=== PATIENT | male | born 1975 | race Two or more races ===

== ENCOUNTER 2024-10-13 20:19 | Inpatient (IN) | payer MEDICAID, SELFPAY ==
[2024-10-13 20:20] VITALS: BMI 29.9
[2024-10-13 20:39] VITALS: BP 154/79; PULSE 106; RESP 20; TEMP 39.4; O2SAT 95
[2024-10-13 20:51] VITALS: TEMP 39.4
[2024-10-13] MEDS: ACETAMINOPHEN 500 MG TABLET 1000 MG PO (20:51)
--- NOTE | 2024-10-13 20:56 | XR_ITS ---
Examination: CT abdomen with intravenous contrast CT pelvis with intravenous contrast 2-D coronal reconstructions 2-D sagittal reconstructions Date and time of exam:October 13, 2024, 10:33 PM INDICATIONS: Perianal pain and fever beginning 6 days ago. CTDI: vol (mGy) 8.02. DLP: (mGycm) 578. Technique: Multiple axial sections of the abdomen and pelvis have been obtained. 64 slice high-resolution scanner used. 3 mm axial sections have been obtained, post intravenous injection 60 cc Isovue 370. 2-D sagittal, coronal reconstructions obtained. Low dose protocols were performed. One or more of the following dose reduction techniques were used; automated exposure control, adjustment of the mA and/or KV according to patient size, use of iterative reconstruction technique. Findings: No focal liver or splenic lesions No gallstones. No pancreatic or adrenal mass. No renal or ureteral calculi, no hydronephrosis Aorta normal size Normal appendix No bowel obstruction Distended urinary bladder. Normal seminal vesicles No prostatomegaly Posterior perianal abscess, U shaped, transverse dimension 3.2 cm, AP dimension 3.4 cm Cephalocaudad dimension 1.4 cm Possible fistulous tract image 248 extending to the intergluteal fold on the right side image 246 IMPRESSION: Posterior right and left perianal abscess
[2024-10-13 21:14] VITALS: BP 105/75; PULSE 92; RESP 29; TEMP 37.7
--- NOTE | 2024-10-13 21:14 | PD.EDSKIN ---
ED Skin Abcess FB-RME/HPI General Chief complaint: General Adult/Misc Complain Stated complaint: RECTAL PAIN Time Seen by Provider: 10/13/24 20:46 Arrival date/time: 10/13/24 20:19 49M with no significant PMH presents to ED with several days of rectal pain and fevers/chills. Patient denies URI symptoms and blood in stool. Limitations: no limitations Related Data Home Medications ?Medication ?Instructions ?Recorded ?Confirmed No Known Home Medications 07/01/23 07/01/23 Allergies Allergy/AdvReac Type Severity Reaction Status Date / Time No Known Allergies Allergy Verified 07/02/23 07:35 Review of Systems Review of Systems Systems Reviewed: All systems reviewed, normal except as documented Constitutional Constitutional: Reports system reviewed and no additional complaints, except as documented, Denies fever(s) and Denies headache(s) ENT Ears, Nose, Mouth, and Throat: Denies disequilibrium and Denies headache(s) Cardiovascular Cardiovascular: Reports system reviewed and no additional complaints, except as documented, Denies chest pain and Denies dyspnea Respiratory Respiratory: Reports system reviewed and no additional complaints, except as documented, Denies cough and Denies dyspnea Gastrointestinal Gastrointestinal: Reports system reviewed and no additional complaints, except as documented, Denies abdominal pain, Denies nausea and Denies vomiting Integumentary/Breasts Skin/Breast: Reports as per HPI and Reports skin pain Neurologic Neurologic: Reports system reviewed and no additional complaints, except as documented, Denies confusion, Denies disequilibrium and Denies headache(s) Psychiatric Psychiatric: Denies confusion Past Medical History Past Medical History NEUROLOGIC: Negative Neurological Disorders or Seizures CARDIAC: Negative Cardiac Disorders or Congestive Heart Failure RESPIRATORY: Negative Chronic Obstructive Pulmonary Disease (COPD) GASTROINTESTINAL: Negative Gastrointestinal Disorders GENITOURINARY: Negative Genitourinary Disorders or Renal Disease MUSCULOSKELETAL: Negative Musculoskeletal Disorders ENDOCRINE: Negative Endocrine Disorders, Diabetes Mellitus Type 1 or Diabetes Mellitus Type 2 HEMATOLOGIC: Negative Blood Disorders OTHER HISTORY: Negative Autoimmune Disease, Falls, Blood Transfusions, Anesthesia Reactions, MRSA or Cancer Social History SMOKING STATUS: Never smoker SUBSTANCE USE: does not use ED Exam General Limitations: Present no limitations General appearance: Present alert and in no apparent distress Head Head exam: Present atraumatic Eye Eye exam: Present normal appearance, PERRL and EOMI ENT ENT exam: Present normal exam, normal oropharynx and mucous membranes moist Neck Neck exam: Present normal inspection, full ROM and trachea midline Chest Chest inspection: Present normal inspection and symmetric chest wall rise Respiratory Respiratory exam: Present normal lung sounds bilaterally Cardiovascular Cardiovascular exam: Present regular rate, normal rhythm and normal heart sounds Abdominal Exam Abdominal exam: Present soft and normal bowel sounds Rectal Exam Rectal exam: Present hemorrhoids and tenderness Extremities Exam Extremities exam: Present normal inspection and full ROM Back Exam Back exam: Present normal inspection and full ROM Neurological Exam Neurological exam: Present alert, oriented X3 and CN II-XII intact Psychiatric Psychiatric exam: Present normal affect and normal mood Skin Skin exam: Present warm, dry, intact and normal color Course Quality Measures none Orders Category Date Time Status Bedside COVID-19 Antigen Test NOW Care 10/13/24 20:47 Active Bedside Influenza A&B Antigen Test NOW Care 10/13/24 20:47 Completed COVID-19 Screening Questionnaire NOW Care 10/13/24 23:[address] Screening NOW Care 10/13/24 20:56 Active Decision to Admit X1 Care 10/13/24 23:18 Active Insert IV NOW Care 10/13/24 20:56 Active NPO NOW Care 10/13/24 23:19 Active Consult to General Surgery Stat Cons 10/13/24 23:18 Ordered Diet NPO (NOW) Diet 10/13/24 23:[address] abdomen pelvis w con Stat Exams 10/13/24 20:56 Completed XR chest 1V portable Stat Exams 10/13/24 21:43 Completed A1C [Glycohemoglobin w (eAG)] Stat Lab 10/13/24 21:16 Completed Blood Culture (Lab) Stat Lab 10/13/24 21:16 Received CBC Stat Lab 10/13/24 21:16 Completed CMP [Comprehensive Metabolic Panel] Stat Lab 10/13/24 21:16 Completed CRP [C-Reactive Protein] Stat Lab 10/13/24 21:16 Completed Drug Screen,Urine Stat Lab 10/13/24 21:36 Completed ESR [Sed Rate (ESR)] Stat Lab 10/13/24 21:16 Completed Lactate (Lactic Acid) Stat Lab 10/13/24 21:16 Completed Procalcitonin Stat Lab 10/13/24 21:16 Completed Acetaminophen Tab [Tylenol ES Tab] Med 10/13/24 20:47 Discontinued 1,000 mg PO X1 ONE Ketorolac Inj [Toradol Inj] Med 10/13/24 20:56 Discontinued 30 mg IVP X1 ONE Piper/Tazo 3.375 gm Premix [Zosyn] Med 10/13/24 23:18 Discontinued 3.375 gm in 50 ml IV X1 Sodium Chloride 0.9% 1000 ml [Ns] 1,000 ml Med 10/13/24 20:56 Discontinued IV 999 mls/hr cefTRIAXone/D5w 1gm IV premix [Rocephin/D5w 1gm IV Med 10/13/24 20:58 Discontinued premix] 1 gm in 50 ml IV X1 Vital Signs Vital signs: Vital Signs Temperature 102.9 F H 10/13/24 20:39 Pulse Rate 106 H 10/13/24 20:39 Respiratory Rate 20 10/13/24 20:39 Blood Pressure 154/79 H 10/13/24 20:39 Pulse Oximetry (%) 95 10/13/24 20:39 Oxygen Delivery Method Room Air 10/13/24 20:39 O2 at 95% on RA and WNLs Skin / Abscess / Foreign Body MDM Narrative MDM Narrative:: 49M with no significant PMH presents to ED with several days of rectal pain and fevers/chills. Patient denies URI symptoms and blood in stool. 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 However, there skin is very tender around the rectum. Patient is febrile, but is alert. Sepsis alert called. CT reveals several perianal abscesses along with possible fistula. Moderate leukocytosis. Elevated CRP/ESR. Normal procal/lactate. A1C in pre-DM range. Tox screen neg. Upon reassessment, patient felt better after IVF and pain meds. Spoke to Dr. Grimaldo, gen surg, who will consult. Spoke to IM resident reporting to Dr. Jordan, who will admit patient. Patient data External records reviewed:: [facility] previous records Clinical information provided by:: patient Social determinants that could affect healthcare access:: none Patient has the following chronic illnesses:: none How is presenting disease/condition affected by chronic disease/condition?: no chronic disease Evaluation data The following diagnostics were reviewed and interpreted by me:: lab results and radiology exam(s) Lab and/or radiology exams considered but not ordered:: ordered Interpretation Summary: above Medications / Prescriptions Medications or Prescriptions considered but not ordered:: ordered Medication administrations:: Medication Administration History Acetaminophen (Acetaminophen 325 Mg Tablet) 650 mg PO Q6H PRN PRN Reason: Fever >100.4 or pain 1-3 Stop: 11/12/24 23:46 Hydrocodone Bitart/Acetaminophen (Hydrocodone/Apap 5/325 Tablet) 1 tab PO Q4HR PRN PRN Reason: PAIN SCALE 4-10(Mod-Sev Stop: 10/18/24 23:46 Enoxaparin Sodium (Enoxaparin Sod Inj 40 Mg/0.4 Ml Syringe) 40 mg SC QDAY CYN Stop: 10/28/24 08:59 Ceftriaxone Sodium 2 gm/ (Sodium Chloride) 50 mls @ 100 mls/hr IV QDAY [facility] Stop: 10/21/24 08:59 Metronidazole (Flagyl 500 Mg Iv) 500 mg in 100 mls @ 200 mls/hr IV Q8HR CYN Stop: 10/20/24 23:56 Last Admin: 10/14/24 00:41 Dose: 200 mls/hr Documented By: CHELITA Lactated Ringer's (Lactated Ringers) 1,000 mls @ 80 mls/hr IV .[id number] CYN Stop: 10/14/24 12:28 Last Admin: 10/14/24 00:33 Dose: 80 mls/hr Documented By: CHELITA Ketorolac Tromethamine (Ketorolac Inj 30 Mg/Ml Vial) 30 mg IVP Q6HR PRN PRN Reason: PAIN SCALE 6-10(Mod-Sev Stop: 10/19/24 00:44 Ondansetron HCl (Ondansetron Inj 2 Mg/Ml Inj 2 Ml) 4 mg IVP Q6H PRN; Protocol PRN Reason: NAUSEA OR VOMITING Stop: 11/12/24 23:46 Discontinued Medications Acetaminophen (Acetaminophen 500 Mg Tablet) 1,000 mg PO X1 ONE Stop: 10/13/24 20:48 Last Admin: 10/13/24 20:51 Dose: 1,000 mg Documented By: CLIFF Acetaminophen (Acetaminophen 325 Mg Tablet) 650 mg PO Q6H PRN PRN Reason: Fever >100.4 or pain Stop: 11/12/24 23:46 Sodium Chloride (Ns) 1,000 mls @ 999 mls/hr IV .Q1H1M ONE Stop: 10/13/24 21:56 Last Infusion: 10/13/24 22:55 Dose: Infused Documented By: Admin: 10/13/24 21:33 Dose: 999 mls/hr Documented By: CHELITA Ceftriaxone Sodium/Dextrose (Rocephin/D5w 1gm Iv Premix) 1 gm in 50 mls @ 100 mls/hr IV X1 ONE Stop: 10/13/24 21:27 Last Infusion: 10/13/24 22:06 Dose: Infused Documented By: Admin: 10/13/24 21:35 Dose: 100 mls/hr Documented By: CHELITA Piperacillin/Tazobactam/Dextrose (Zosyn) 3.375 gm in 50 mls @ 100 mls/hr IV X1 ONE Stop: 10/13/24 23:47 Last Infusion: 10/14/24 00:52 Dose: Infused Documented By: Admin: 10/13/24 23:49 Dose: 100 mls/hr Documented By: CHELITA Ketorolac Tromethamine (Ketorolac Inj 30 Mg/Ml Vial) 30 mg IVP X1 ONE Stop: 10/13/24 20:57 Last Admin: 10/13/24 21:33 Dose: 30 mg Documented By: CHELITA Ketorolac Tromethamine (Ketorolac Inj 30 Mg/Ml Vial) 30 mg IVP Q6HR PRN PRN Reason: PAIN Stop: 10/19/24 00:44 Ketorolac Tromethamine (Ketorolac Inj 30 Mg/Ml Vial) 30 mg IVP Q6HR PRN PRN Reason: PAIN SCALE 4-10(Mod-Sev Stop: 10/19/24 00:44 above Consultations Consultation(s) initiated? (list below): Yes Diagnosis Skin/Abscess Differential Diagnosis: abscess of skin or subcutaneous tissue, viral exanthem, dermatophytosis, urticaria, herpes zoster, allergic reaction to drug, cellulitis, eczema, insect bites, impetigo, contact dermatitis and other (perianal abscess) Most likely diagnosis given after review of the tests above:: perianal abscess Admission Indicated Admission indicated?: indicated Admission Request Was there a request for admission?: Yes Admission Attestation Admission request attestation: Discussed case with [Dr. Jordan] from Hospitalist service regarding admission. Discussed patients ED course, exam findings, labs, and radiology results. The Hospitalist [agrees] to accept the patient for admission. Disposition Plan Disposition Plan: Admit Discharge Plan Plan Patient Disposition: Admit Acute Care w/in Hospital Problem List Clinical Impression: Abscess, perianal
[2024-10-13 21:27] LABS: Lactate (Lactic Acid) 0.9 mMol/L (0.4-2.0)
[2024-10-13 21:33] VITALS: TEMP 37.8
[2024-10-13] MEDS: KETOROLAC INJ 30 MG/ML VIAL IVP (21:33)
[2024-10-13] MEDS: SODIUM CHLORIDE 0.9% 1000 ML 1,000 ML 999 ML IV (21:33)
[2024-10-13] MEDS: cefTRIAXone/D5w 1gm IV premix 1 GM/50 ML BAG IV (21:35)
[2024-10-13 21:40] VITALS: BP 105/75; PULSE 89; RESP 22; TEMP 37.7; O2SAT 94
--- NOTE | 2024-10-13 21:43 | XR_ITS ---
Examination: AP chest single view TECHNIQUE: AP portable upright chest single view Date and time: October 13, 2024 2140 hours INDICATIONS: Sepsis alert today. Findings: Normal heart size Minor atelectasis left base No lobar pneumonia or pulmonary edema IMPRESSION: No pneumonia identified.
[2024-10-13 21:44] LABS: Basophils # (Auto) 0.1 Thou/mm3 (0.0-0.2); Basophils % (Auto) 0 % (0-2.5); Eosinophils # (Auto) 0.0 Thou/mm3 (0.0-0.5); Eosinophils % (Auto) 0 % (0-10); Hematocrit 41.6 % (41.0-53.0); Hemoglobin 15.1 g/dL (13.5-16.0); Immature Granulocytes Auto 0.07 Thou/mm3 (0.00-0.00); Lymphocytes # (Auto) 1.1 Thou/mm3 (1.0-4.8); Lymphocytes % (Auto) 8 % (10-50); Mean Corpuscular HGB Conc 36.3 g/dl (31.0-37.0); Mean Corpuscular Hemoglobin 32.8 pg (25.0-35.0); Mean Corpuscular Volume 90 fL (80-100); Monocytes # (Auto) 1.2 Thou/mm3 (0.0-0.8); Monocytes % (Auto) 9 % (0-12); Neutrophils # (Auto) 11.4 Thou/mm3 (1.8-7.7); Neutrophils % (Auto) 83 % (37-80); Nucleated Red Blood Cell # 0.00 Thou/mm3 (0.00-0.00); Nucleated Red Blood Cell % 0 /100 WBC (0); Platelet Count 207 Thou/mm3 (140-440); RDW Standard Deviation 38.8 fL (35.1-43.9); Red Blood Count 4.60 Miln/mm3 (4.50-5.90); White Blood Count 13.8 Thou/mm3 (3.8-10.6)
[2024-10-13 21:51] VITALS: TEMP 37.7
[2024-10-13 22:09] LABS: Sed Rate (ESR) 73 mm/hr (0-20)
[2024-10-13 22:14] LABS: Alanine Aminotransferase 46 U/L (10-49); Albumin, Serum 4.6 gm/dL (3.5-5.0); Albumin/Globulin Ratio 1.3 (1.2-2.2); Alkaline Phosphatase 106 U/L (46-116); Anion Gap 11 (7-16); Aspartate Amino Transferase 17 U/L (0-34); BUN/Creatinine Ratio 10 Ratio (12-20); Bilirubin,Total 0.5 mg/dL (0.3-1.2); Blood Urea Nitrogen 8 mg/dL (9-23); Calcium 9.1 mg/dL (8.3-10.6); Calcium (Corrected) 9.1 mg/dL (8.5-10.1); Carbon Dioxide 23.2 mMol/L (20.0-31.0); Chloride 103 mMol/L (98-107); Creatinine (Component) 0.8 mg/dL (0.6-1.3); Estimated Creatinine Clearance 108.7 mL/min (>60); Globulin 3.5 gm/dL (2.3-3.5); Glucose 137 mg/dL (74-106); Osmolality,Calculated 274 (275-295); Potassium 3.4 mMol/L (3.4-5.1); Procalcitonin 0.14 ng/ml (0.0-0.49); Sodium 137 mMol/L (136-145); Total Protein 8.1 gm/dL (5.7-8.2); eGFR > 60 See Note
[2024-10-13 22:26] LABS: Amphetamine/Methamp Scrn,U Negative (Negative); Barbiturate Screen,Urine Negative (Negative); Benzodiazepines Screen,Urine Negative (Negative); Benzoylecgonine Screen, Ur Negative (Negative); Fentanyl Screen,Urine Negative (Negative); Opiate Screen,Urine Negative (Negative); THC Screen,Urine Negative (Negative)
[2024-10-13 23:47] LABS: C-Reactive Protein 10.0 mg/dL (0.0-0.9); Glucose Estimated Average 131 mg/dL (80-131); Hemoglobin A1C 6.2 % Hgb (4.8-6.0)
[2024-10-13] MEDS: PIPER/TAZO 3.375 GM PREMIX 3.375 GM/50 ML BAG IV (23:49)
--- NOTE | 2024-10-13 23:50 | PD.RESHP ---
Documentation for date of: 10/13/24 [facility] History of Present Illness Chief complaint: Rectal pain History of present illness: 49 y/o M without PMHx presents to ED with chief complaint of rectal pain x 5 days and fevers and chills x 2 days. Patient was in his usual state health about 5 days ago when he began developing rectal pain, worsened with bowel movements. Patient tried home remedies including Epsom salt baths, without relief. Patient had to take several days off work due to increasing rectal pain. Patient also noticed fevers and chills starting 2 days ago. Patient denied shortness of breath, chest pain, nausea, vomiting, abdominal pain. ED COURSE: Labs significant for: WBC 13.8, ESR 73, CRP 10, hemoglobin A1c 6.2%, Pro-Bobo 0.14, U tox negative. Imaging significant for: Chest x-ray unremarkable. CT A/P showed posterior perianal abscess, possible fistula. Patient received 1 L bolus normal saline, 1 g Rocephin, Toradol 30 mg in the ED. SIRS positive, leukocytosis, tachycardia, fever 102.9. PMH: None PSH: None SH: Denies tobacco or illicit drug use. Reports occasional alcohol use, 1-2 drinks every couple of days. Allergies:?NKDA Medications: None Review of Systems Review of Systems Systems Reviewed: All systems reviewed, normal except as documented Past Medical History Past Medical History Comments PMH COMMENT: PMH: None PSH: None SH: Denies tobacco or illicit drug use. Reports occasional alcohol use, 1-2 drinks every couple of days. Allergies:?NKDA Medications: None Exam Vital Signs Temp Pulse Resp BP Pulse Ox O2 Del Method 100 F 89 22 H 105/75 94 L Room Air 10/13/24 21:51 10/13/24 21:40 10/13/24 21:40 10/13/24 21:40 10/13/24 21:40 10/13/24 21:40 Narrative Exam PE: Gen: Well-developed and well-nourished. HEENT: NCAT, PERRLA, EOMI, MMM, anicteric conjunctivae. CVS: normal S1 and S2. RRR. No M/R/G. Resp: CTA B/L. No rhonchi, rales, crackles or wheezing. Abd: soft, non-tender, non-distended. BS+ in all 4 quadrants. Rectal: Exquisitely tender to exam. Nonerythematous, no obvious masses. MSK: Good ROM in BUE & BLE. No edema or rash. Neuro: CN II-XII grossly intact. Strength 5/5 in BUE & BLE. Alert and oriented x3. Psych: appropriate mood and affect. Results: Labs 10/13/24 21:16 10/13/24 21:16 Labs: Short CBC 10/13/24 Range/Units 21:16 WBC 13.8 H (3.8-10.6) Thou/mm3 Hgb 15.1 (13.5-16.0) g/dL Hct 41.6 (41.0-53.0) % Plt Count 207 (140-440) Thou/mm3 BMP 10/13/24 21:16 Sodium 137 Potassium 3.4 Chloride 103 Carbon Dioxide 23.2 BUN 8 L Creatinine 0.8 Glucose 137 H Calcium 9.1 Liver Function 10/13/24 Range/Units 21:16 Total Bilirubin 0.5 (0.3-1.2) mg/dL AST 17 (0-34) U/L ALT 46 (10-49) U/L Alkaline Phosphatase 106 (46-116) U/L Albumin 4.6 (3.5-5.0) gm/dL Quality Measures Quality Measures VTE prophylaxis Medications Home Medications and Allergies Home Medications ?Medication ?Instructions ?Recorded ?Confirmed ?Type No Known Home Medications 07/01/23 07/01/23 History Allergies Allergy/AdvReac Type Severity Reaction Status Date / Time No Known Allergies Allergy Verified 07/02/23 07:35 Visit Medications Acetaminophen (Acetaminophen 325 Mg Tablet) 650 mg PO Q6H PRN PRN Reason: Fever >100.4 or pain Stop: 11/12/24 23:46 Hydrocodone Bitart/Acetaminophen (Hydrocodone/Apap 5/325 Tablet) 1 tab PO Q4HR PRN PRN Reason: PAIN SCALE 4-10(Mod-Sev Stop: 10/18/24 23:46 Enoxaparin Sodium (Enoxaparin Sod Inj 40 Mg/0.4 Ml Syringe) 40 mg SC QDAY CYN Stop: 10/28/24 08:59 Ceftriaxone Sodium 2 gm/ (Sodium Chloride) 50 mls @ 100 mls/hr IV QDAY CYN Stop: 10/20/24 23:56 Metronidazole (Flagyl 500 Mg Iv) 500 mg in 100 mls @ 200 mls/hr IV Q8HR [facility] Stop: 10/20/24 23:56 Lactated Ringer's (Lactated Ringers) 1,000 mls @ 80 mls/hr IV .[id number] [facility] Stop: 10/14/24 12:28 Ondansetron HCl (Ondansetron Inj 2 Mg/Ml Inj 2 Ml) 4 mg IVP Q6H PRN; Protocol PRN Reason: NAUSEA OR VOMITING Stop: 11/12/24 23:46 Discontinued Medications Acetaminophen (Acetaminophen 500 Mg Tablet) 1,000 mg PO X1 ONE Stop: 10/13/24 20:48 Last Admin: 10/13/24 20:51 Dose: 1,000 mg Sodium Chloride (Ns) 1,000 mls @ 999 mls/hr IV .Q1H1M ONE Stop: 10/13/24 21:56 Last Infusion: 10/13/24 22:55 Dose: Infused Ceftriaxone Sodium/Dextrose (Rocephin/D5w 1gm Iv Premix) 1 gm in 50 mls @ 100 mls/hr IV X1 ONE Stop: 10/13/24 21:27 Last Infusion: 10/13/24 22:06 Dose: Infused Piperacillin/Tazobactam/Dextrose (Zosyn) 3.375 gm in 50 mls @ 100 mls/hr IV X1 ONE Stop: 10/13/24 23:47 Last Admin: 10/13/24 23:49 Dose: 100 mls/hr Ketorolac Tromethamine (Ketorolac Inj 30 Mg/Ml Vial) 30 mg IVP X1 ONE Stop: 10/13/24 20:57 Last Admin: 10/13/24 21:33 Dose: 30 mg Assessment & Plan Plan 49 y/o M without PMHx presents to ED with chief complaint of rectal pain x 5 days and fevers and chills x 2 days admitted for perianal abscess. #Perianal abscess, nonseptic Patient presented with chief complaint of rectal pain x 5 days, growing worse despite treatment with Epsom salt baths. Patient also noted fever and chills x 2 days. SIRS positive with tachycardia, leukocytosis, fever 102.9. Sepsis negative, sofa score 0. CT A/P showed perianal abscess, possible fistula. Dr. Erazo on board, plan for I&D tomorrow. - Ceftriaxone 2 g IV daily (started 10/14) - Patient to follow-up Flagyl 500 mg IV 3 times daily (started 10/14) - N.p.o. after midnight - Plan for I&D tomorrow - Surgery consulted, appreciate recommendations - Catarina 5 p.o. every 4 hours as needed for pain - Blood cultures pending #Prediabetes Patient has no history of diabetes. Hemoglobin A1c 6.2%, prediabetic range. - Education regarding lifestyle and diet changes. DVT prophylaxis: Lovenox GI prophylaxis: None Diet: N.p.o. pending procedure Lines: Peripheral IV Code status: Full code Plan of care discussed with attending Dr. Jordan. Sammy Cardona MD PGY-2 Attending Provider Attestation/Addendum I attest that I was physically present for the evaluation, physical examination, lab and imaging review of the patient with the residents. I discussed the case with the residents and agree with the findings and plans of care as documented above. After examination of the patient and review of the clinical data I feel that this patient needs admission to the hospital for further treatment/evaluation. Patient is a 49 years old male without known past medical history who presented to the ED with complaint of rectal pain for 5 days. He is also having chills and fever for the last couple days. His rectal pain is worsened with bowel movement. He denies any abdominal pain, nausea or vomiting. In the ED, initial vitals showed temperature of 102.9 ?F, pulse of 106, blood pressure 154/79. Lab results were significant for WBC of 13.8, ESR 73, CRP 10. Chest x-ray was obtained, which did not show any active disease. Abdomen/pelvis CT was done, which showed posterior perianal abscess, possible fistulous tract. We will admit the patient for management of perianal abscess. We will start him on IV Rocephin 2 g daily along with Flagyl 500 3 times daily. General surgery has been contacted by ED, patient is planned for I&D tomorrow. Cultures have been obtained. Analgesic regimen on board. Noted to have A1c of 6.2, blood glucose, and place stable, we will monitor closely. Monika Jordan MD
[2024-10-14] VITALS (63 sets, daily range): BP systolic 99–164; BP diastolic 60–95; PULSE 71–103; RESP 16–20; TEMP 36.4–37.7; O2SAT 90–97; BMI 29.9
[2024-10-14] MEDS: RINGERS LACTATED 1000 ML 1,000 ML 80 ML IV (00:33)
[2024-10-14] MEDS: metroNIDAZOLE/NS 500 MG IVPB 500 MG/100 ML BAG 200 MG IV ×4 (00:41→21:16)
[2024-10-14] MEDS: KETOROLAC INJ 30 MG/ML VIAL IVP ×3 (01:54→15:24)
[2024-10-14] MEDS: MORPHINE SULF INJ 10 MG/ML VIAL IVP (04:54)
[2024-10-14 05:01] LABS: Basophils # (Auto) 0.1 Thou/mm3 (0.0-0.2); Basophils % (Auto) 0 % (0-2.5); Eosinophils # (Auto) 0.0 Thou/mm3 (0.0-0.5); Eosinophils % (Auto) 0 % (0-10); Hematocrit 40.9 % (41.0-53.0); Hemoglobin 14.2 g/dL (13.5-16.0); Immature Granulocytes Auto 0.06 Thou/mm3 (0.00-0.00); Lymphocytes # (Auto) 1.1 Thou/mm3 (1.0-4.8); Lymphocytes % (Auto) 8 % (10-50); Mean Corpuscular HGB Conc 34.7 g/dl (31.0-37.0); Mean Corpuscular Hemoglobin 32.1 pg (25.0-35.0); Mean Corpuscular Volume 92 fL (80-100); Monocytes # (Auto) 1.3 Thou/mm3 (0.0-0.8); Monocytes % (Auto) 9 % (0-12); Neutrophils # (Auto) 12.1 Thou/mm3 (1.8-7.7); Neutrophils % (Auto) 83 % (37-80); Nucleated Red Blood Cell # 0.00 Thou/mm3 (0.00-0.00); Nucleated Red Blood Cell % 0 /100 WBC (0); Platelet Count 186 Thou/mm3 (140-440); RDW Standard Deviation 40.7 fL (35.1-43.9); Red Blood Count 4.43 Miln/mm3 (4.50-5.90); White Blood Count 14.6 Thou/mm3 (3.8-10.6)
[2024-10-14 05:18] LABS: INR 1.1 (0.9-1.3); Partial Thromboplastin Time 29.0 Seconds (22.0-36.0); Prothrombin Time 11.8 Seconds (9.0-12.2)
[2024-10-14 06:12] LABS: Alanine Aminotransferase 37 U/L (10-49); Albumin, Serum 3.9 gm/dL (3.5-5.0); Albumin/Globulin Ratio 1.3 (1.2-2.2); Alkaline Phosphatase 88 U/L (46-116); Anion Gap 10 (7-16); Aspartate Amino Transferase 15 U/L (0-34); BUN/Creatinine Ratio 11 Ratio (12-20); Bilirubin,Total 0.5 mg/dL (0.3-1.2); Blood Urea Nitrogen 9 mg/dL (9-23); Calcium 8.4 mg/dL (8.3-10.6); Calcium (Corrected) 8.5 mg/dL (8.5-10.1); Carbon Dioxide 25.6 mMol/L (20.0-31.0); Cardiac Risk Estimate 4.8 RATIO (4.0-6.7); Chloride 105 mMol/L (98-107); Cholesterol 155 mg/dL (132-200); Creatinine (Component) 0.8 mg/dL (0.6-1.3); Estimated Creatinine Clearance 108.7 mL/min (>60); Globulin 2.9 gm/dL (2.3-3.5); Glucose 125 mg/dL (74-106); HDL Cholesterol 32 mg/dL (40-60); LDL Cholesterol,Calculated 104 mg/dL (0-130); Magnesium 1.9 mg/dL (1.6-2.6); Osmolality,Calculated 280 (275-295); Phosphorous 2.7 mg/dL (2.4-5.1); Potassium 3.6 mMol/L (3.4-5.1); Sodium 141 mMol/L (136-145); Total Protein 6.8 gm/dL (5.7-8.2); Triglycerides 95 mg/dL (30-150); eGFR > 60 See Note
--- NOTE | 2024-10-14 08:10 | PD.SURCONS ---
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 Patient reports symptoms began suddenly with no clear inciting factor, he has had similar episodes but they were less severe and did not require any intervention. He is also having malaise and fever/chills the last couple days, workup consistent with small horseshoe perirectal abscess up to 3.4 cm. Patient has not noted any drainage from the area, he has had some constipation which was not helped by fiber but he underwent colonoscopy last year which was normal aside from internal hemorrhoids PMH: None PSH: None Meds: None Allergies: NKDA Social history: Non-smoker Family history: No known malignancy Review of Systems Review of Systems ROS Unobtainable: All systems reviewed & no additional complaints except as documented Constitutional Constitutional: Denies headache(s) ENT Ears, Nose, Mouth, and Throat: Denies disequilibrium and Denies headache(s) Neurologic Neurologic: Reports system reviewed and no additional complaints, except as documented, Denies confusion, Denies disequilibrium and Denies headache(s) Psychiatric Psychiatric: Denies confusion Meds Home Medications and Allergies Home Medications ?Medication ?Instructions ?Recorded ?Confirmed ?Type No Known Home Medications 07/01/23 07/01/23 History Allergies Allergy/AdvReac Type Severity Reaction Status Date / Time No Known Allergies Allergy Verified 07/02/23 07:35 Exam Vital Signs Temp Pulse Resp BP Pulse Ox O2 Del Method 99.4 F 73 19 164/95 H 94 L Room Air 10/14/24 05:00 10/14/24 05:00 10/14/24 05:00 10/14/24 07:00 10/14/24 07:00 10/14/24 05:00 Constitutional Constitutional: no acute distress Routine Respiratory Exam Respiratory: Present no resp distress Routine Rectal Exam Comments: Significant perianal tenderness, however there is no obvious fluctuance or erythema on exam Results Results: Laboratory Laboratory results: results reviewed Results: Imaging CT scan - abdomen: report reviewed and image reviewed Assessment & Plan Plan 49M presenting with a 3.4 cm perirectal abscess. As the abscess is not obvious on exam, I reached out to our interventional radiologist to determine if it might be amenable to image guided drainage; if not I will pursue exam under anesthesia with plan to surgically drain this afternoon N.p.o. for now Continue antibiotics IR versus surgical drainage today
[2024-10-14] MEDS: HYDROcodone/APAP 5/325 TABLET 1 TAB PO (08:39)
[2024-10-14] MEDS: ENOXAPARIN SOD INJ 40 MG/0.4 ML SYRINGE SC (08:39)
[2024-10-14] MEDS: ONDANSETRON INJ 2 MG/ML INJ 2 ML 4 MG IVP (08:40)
--- NOTE | 2024-10-14 17:57 | PD.SUROPNT ---
Date of Procedure 10/14/24 Pre Op Diagnosis Perirectal abscess Post Op Diagnosis Same Procedure Incision and drainage of perirectal abscess Findings Perirectal abscess containing copious pus Procedure Description After discussion of risks and benefits, patient was brought to the operating room, SCDs were placed and general anesthesia was induced. He was placed in lithotomy position with proper padding and was prepped and draped in usual sterile fashion. After timeout the area of most fluctuance was palpated to the right of the anus. I first aspirated the area with an 18-gauge needle and then made a curvilinear incision approximately 2 cm in length and approximately 1 cm from the anus. The wound was probed with a hemostat and there was a return of copious pus from which a culture was taken. The wound was probed for any loculations and approximately 30 cc of pus in total was expressed. Given the horseshoe nature of this abscess I did palpate the left side of the anus and aspirated but there was no return of pus, so ultimately did not seem that a left-sided incision would be beneficial. There was some oozing from the right perianal incision which was controlled with direct pressure, electrocautery and Surgicel. A Anaid drain was placed into the incision and secured to the skin and to itself using a 2-0 nylon. A local block was performed with 20 cc of half percent Marcaine. Patient was returned to supine position and extubated without complication. He was brought to PACU in stable condition Pathology / specimen Other (Perirectal abscess) Estimated Blood Loss 25 Surgeon Marleny Erazo MD Surgical Staff Operation Date: 10/14/24 14:45 Case Staff Anesthesiologist: Leonidas Ahumada
--- NOTE | 2024-10-14 18:27 | SUR.PHASEI ---
pt received to [facility]. vss. perineal dressing cdi with mesh under graves and gauze. breathing even and unlabored. report from or nurse and dr howard.
--- NOTE | 2024-10-14 18:50 | SUR.PHASEI ---
report called to juan on ms. vss. breathing even and unlabored. dressing cdi. denies pain and nausea. tolerated po fluids. dressing remains cdi with pen steffany drain in place. transported to room via [facility].
[2024-10-14] MEDS: cefTRIAXone 2 GM in SODIUM CHLORIDE 0.9% (Popper) 50 ML IV (20:20)
--- NOTE | 2024-10-14 21:07 | ESPR_ITS ---
<Statement entered by Dennis Gibson MD - 10/16/24 21:07> Patient was examined and case was reviewed with team including attending physician. Note reviewed, I agree with most of its contents and agree with the patient's care. Dennis Gibson MD PGY-2 Documentation for date of: 10/14/24 Subjective Subjective Interval history: Patient was seen in the ED this morning. No other complaints at this time. Patient is aware of and acknowledged the plan for surgery today. Exam Vital Signs Temp Pulse Resp BP Pulse Ox O2 Del Method O2 Flow Rate 98.0 F 72 19 99/67 91 L Nasal Cannula 2 10/14/24 20:00 10/14/24 20:00 10/14/24 20:00 10/14/24 20:00 10/14/24 20:00 10/14/24 20:00 10/14/24 20:00 Narrative Exam Physical Exam General: Awake and in no acute distress. Conversational and non-toxic appearing. HEENT: Normocephalic, atraumatic, mucous membranes moist. Heart: Regular rate and rhythm, normal S1 and S2, no murmurs. Lungs: Clear to auscultation with no wheezing or crackles. Abdomen: Soft, nondistended, nontender. No guarding or rebound tenderness. Neurologic: Alert and oriented x3, no gross neurological deficit, and patient able to move all 4 extremities. Extremities: No edema. Skin: No rash or ecchymoses. Rectal exam not performed. Objective Labs 10/15/24 04:21 10/15/24 04:21 Labs: Laboratory Results - last 24 hr 10/13/24 10/13/24 10/14/24 21:16 21:36 04:45 WBC 13.8 H 14.6 H RBC 4.60 4.43 L Hgb 15.1 14.2 Hct 41.6 40.9 L MCV 90 92 MCH 32.8 32.1 MCHC 36.3 34.7 RDW Std Deviation 38.8 40.7 Plt Count 207 186 Neut % (Auto) 83 H 83 H Lymph % (Auto) 8 L 8 L [place] % (Auto) 9 9 Eos % (Auto) 0 0 Baso % (Auto) 0 0 Neut # (Auto) 11.4 H 12.1 H Lymph # (Auto) 1.1 1.1 [place] # (Auto) 1.2 H 1.3 H Eos # (Auto) 0.0 0.0 Baso # (Auto) 0.1 0.1 Immature Gran # (Auto) 0.07 H 0.06 H Absolute Nucleated RBC 0.00 0.00 Immature Gran % 1 H 0 Nucleated RBC % 0 0 ESR 73 H PT 11.8 INR 1.1 APTT 29.0 Sodium 137 141 Potassium 3.4 3.6 Chloride 103 105 Carbon Dioxide 23.2 25.6 Anion Gap 11 10 BUN 8 L 9 Creatinine 0.8 0.8 Estim Creat Clear Calc 108.7 108.7 eGFR > 60 > 60 BUN/Creatinine Ratio 10 L 11 L Glucose [address] Glu mg/dL 131 Hemoglobin A1c 6.2 H Calculated Osmolality 274 L 280 Lactic Acid 0.9 Calcium 9.1 8.4 Corrected Calcium 9.1 8.5 Phosphorus 2.7 Magnesium 1.9 Total Bilirubin 0.5 0.5 AST 17 15 ALT 46 37 Alkaline Phosphatase 106 88 C-Reactive Prot, Quant 10.0 H Total Protein 8.1 6.8 Albumin 4.6 3.9 D Globulin 3.5 2.9 Albumin/Globulin Ratio 1.3 1.3 Triglycerides 95 Cholesterol 155 LDL Cholesterol, Calc 104 HDL Cholesterol 32 L Cholesterol/HDL Ratio 4.8 Procalcitonin 0.14 Urine Opiates Screen Negative Urine Fentanyl Screen Negative Ur Barbiturates Screen Negative U Amphetamin/Meth Scrn Negative U Benzodiazepines Scrn Negative U Cocaine Metab Screen Negative U Marijuana (THC) Screen Negative Quality Measures Quality Measures VTE prophylaxis Assessment & Plan Assessment Current Active Medications: Generic Name Dose Route Start Last Admin Trade Name Freq PRN Reason Stop Dose Admin Acetaminophen 650 mg 10/14/24 00:06 Acetaminophen 325 Mg Tablet PO 11/12/24 23:46 Q6H PRN Fever >100.4 or pain 1-3 Hydrocodone Bitart/Acetaminophen 1 tab 10/14/24 01:49 10/14/24 08:39 Hydrocodone/Apap 5/325 Tablet PO 10/18/24 23:46 1 tab Q4HR PRN Administration PAIN SCALE 7-10 (Severe Enoxaparin Sodium 40 mg 10/14/24 09:00 10/14/24 08:39 Enoxaparin Sod Inj 40 Mg/0.4 Ml Syringe SC 10/28/24 08:59 40 mg QDAY CYN Administration Ceftriaxone Sodium 2 gm/ 50 mls @ 100 mls/hr 10/14/24 21:00 10/14/24 20:20 Sodium Chloride IV 10/21/24 20:59 100 mls/hr HS CYN Administration Metronidazole 500 mg in 100 mls @ 200 mls/hr 10/13/24 23:57 10/14/24 15:25 Flagyl 500 Mg Iv IV 10/20/24 23:56 200 mls/hr Q8HR CYN Administration Ketorolac Tromethamine 30 mg 10/14/24 01:50 10/14/24 15:24 Ketorolac Inj 30 Mg/Ml Vial IVP 10/19/24 00:44 30 mg Q6HR PRN Administration PAIN SCALE 4-6 (Moderate Ondansetron HCl 4 mg 10/13/24 23:47 10/14/24 08:40 Ondansetron Inj 2 Mg/Ml Inj 2 Ml IVP 11/12/24 23:46 4 mg Q6H PRN Administration NAUSEA OR VOMITING Protocol Plan 49 year-old male presented to emergency department with a 5-day history of rectal pain and a 2-day history of fevers and chills, admitted for management of a perianal abscess. #Perianal abscess (nonseptic) #Intractable rectal pain SIRS positive with tachycardia, leukocytosis, fever 102.9. Sepsis negative, sofa score 0. CT abd/pelvis: posterior right and left perianal abscess, possible fistula. ESR 73, CRP 10.0 Plan: - Ceftriaxone 2 g IV daily (10/14-). - Flagyl 500 mg IV 3 times daily (10/14-). - Surgery consulted - appreciate recs. - Dr. Erazo will reach out to IR to determine if abscess can be amendable to image guided drainage since abscess is not obvious on exam. If IR is unable to, Dr. Erazo will surgically drain the abscess under anesthesia. - NPO for procedure. - [place] 5 p.o. every 4 hours as needed for pain. - Blood cultures pending. - Trend ESR and CRP. #Prediabetes No history of diabetes. Hemoglobin A1c 6.2. Plan: - Patient education about lifestyle modifications (diet, physical activity) - Outpatient follow-up with primary care. Health Maintenance: DVT prophylaxis: Lovenox GI prophylaxis: None Diet: N.p.o. pending procedure Lines: Peripheral IV Code status: Full code Case discussed with my senior resident Dr. Beck Gibson and my attending Dr. Zhong. Jamel Swanson, Attending Provider Attestation/Addendum I have examined the patient, reviewed labs and imaging findings, discussed the case with the resident(s), and reviewed entered orders. I agree with the plan of care as outlined in this note, with these additional summaries/recommendations: Patient seen at bedside. Patient admitted overnight for intractable rectal pain, fever/chills, and perianal abscess. CT scan of abdomen pelvis with contrast revealed posterior perianal abscess which is U-shaped with transverse dimension 3.2 cm in AP dimension 3.4 cm. Questionable fistulous track extending to the intergluteal fold. General surgery was consulted and patient will either go for IR or surgical drainage today. Continue IV antibiotics and follow-up culture results. N.p.o. for now. Patient was also informed he is a prediabetic and showed understanding. Continue pain management. Patient updated on the plan and in agreement. All questions answered to satisfaction. Please see residents note for additional details and management. Dr. Farheen MD
[2024-10-15] VITALS: BP 99/59; PULSE 71; RESP 16; TEMP 36.6; O2SAT 95
[2024-10-15 04:00] VITALS: BP 94/58; PULSE 62; RESP 19; TEMP 36.7; O2SAT 95
[2024-10-15] MEDS: metroNIDAZOLE/NS 500 MG IVPB 500 MG/100 ML BAG 200 MG IV (05:21)
[2024-10-15 06:09] LABS: Basophils # (Auto) 0.0 Thou/mm3 (0.0-0.2); Basophils % (Auto) 0 % (0-2.5); Eosinophils # (Auto) 0.0 Thou/mm3 (0.0-0.5); Eosinophils % (Auto) 0 % (0-10); Hematocrit 38.4 % (41.0-53.0); Hemoglobin 13.1 g/dL (13.5-16.0); Immature Granulocytes Auto 0.11 Thou/mm3 (0.00-0.00); Lymphocytes # (Auto) 1.0 Thou/mm3 (1.0-4.8); Lymphocytes % (Auto) 6 % (10-50); Mean Corpuscular HGB Conc 34.1 g/dl (31.0-37.0); Mean Corpuscular Hemoglobin 32.2 pg (25.0-35.0); Mean Corpuscular Volume 94 fL (80-100); Monocytes # (Auto) 0.8 Thou/mm3 (0.0-0.8); Monocytes % (Auto) 5 % (0-12); Neutrophils # (Auto) 14.8 Thou/mm3 (1.8-7.7); Neutrophils % (Auto) 89 % (37-80); Nucleated Red Blood Cell # 0.00 Thou/mm3 (0.00-0.00); Nucleated Red Blood Cell % 0 /100 WBC (0); Platelet Count 203 Thou/mm3 (140-440); RDW Standard Deviation 41.5 fL (35.1-43.9); Red Blood Count 4.07 Miln/mm3 (4.50-5.90); White Blood Count 16.7 Thou/mm3 (3.8-10.6)
[2024-10-15 06:37] LABS: Alanine Aminotransferase 26 U/L (10-49); Albumin, Serum 3.7 gm/dL (3.5-5.0); Albumin/Globulin Ratio 1.4 (1.2-2.2); Alkaline Phosphatase 90 U/L (46-116); Anion Gap 11 (7-16); Aspartate Amino Transferase 12 U/L (0-34); BUN/Creatinine Ratio 17 Ratio (12-20); Bilirubin,Total 0.3 mg/dL (0.3-1.2); Blood Urea Nitrogen 12 mg/dL (9-23); Calcium 8.2 mg/dL (8.3-10.6); Calcium (Corrected) 8.4 mg/dL (8.5-10.1); Carbon Dioxide 27.4 mMol/L (20.0-31.0); Chloride 101 mMol/L (98-107); Creatinine (Component) 0.7 mg/dL (0.6-1.3); Estimated Creatinine Clearance 124.2 mL/min (>60); Globulin 2.7 gm/dL (2.3-3.5); Glucose 152 mg/dL (74-106); Magnesium 2.1 mg/dL (1.6-2.6); Osmolality,Calculated 280 (275-295); Phosphorous 2.9 mg/dL (2.4-5.1); Potassium 3.6 mMol/L (3.4-5.1); Sodium 139 mMol/L (136-145); Total Protein 6.4 gm/dL (5.7-8.2); eGFR > 60 See Note
[2024-10-15 08:00] VITALS: BP 93/52; PULSE 66; RESP 17; TEMP 36.3; O2SAT 96
[2024-10-15] MEDS: ENOXAPARIN SOD INJ 40 MG/0.4 ML SYRINGE SC (08:16)
[2024-10-15] MEDS: HYDROcodone/APAP 5/325 TABLET 1 TAB PO ×2 (08:40→19:30)
--- NOTE | 2024-10-15 10:30 | PC.SS ---
1030-Pt is a 49 yo female who was admitted on 10/13 for rectal pain x 5 days and fevers and chills x 2 days admitted for perianal abscess. Per morning rounding meeting, pt july d/c tomorrow.
[2024-10-15] MEDS: DOXYCYCLINE INJ 100 MG in SODIUM CHLORIDE 0.9% (POP) 100 ML IV ×2 (11:08→21:14)
--- NOTE | 2024-10-15 11:48 | ESPR_ITS ---
<Statement entered by Roger Muñoz MD - 10/15/24 14:35> Senior Resident Attestation: I supervised/discussed management plan with wireless internet installer physician Dr. Krishnamurthy, and was involved in the care of this patient. I personally saw and examined the patient and discussed the assessment and plan with the entire medicine team, including my attending. I agree with the assessment and plan as documented. No acute overnight events reported. Patient was seen and examined at the bedside. He is postop day 1 reports mild pain at the surgery site, was given pain control. His metronidazole was discontinued he was started on doxycycline. His white cell count is uptrending. Blood culture preliminary grew GNR 1 out of 2, possible contamination. Will continue same management and possible discharge patient tomorrow. Patient's care was discussed with attending physician, Dr. Zhong. Roger Muñoz MD PGY-3. Documentation for date of: 10/15/24 Subjective Subjective Interval history: No overnight events. VS stable. Afebrile. Evaluated at bedside. Perianal abscess s/p I&D by Dr. Erazo with 30cc pus drainage. Pt refers 7/10 pain to I&D site. Multimodal pain control provided. WBC increased to 16.7 from 14.6, likely due to inflammation from surgery vs infection. Will continue to monitor for one more day with pain control, likely D/C tmr if Dr. Erazo ok with discharge and if leukocytosis downtrending. Pt taken off Lovenox, put on SCD to minimize bleed from incision site. Minimal bleeding noted on exam today, will continue to monitor. Exam Vital Signs Temp Pulse Resp BP Pulse Ox O2 Del Method O2 Flow Rate 97.3 F 66 17 93/52 L 96 Nasal Cannula 2 10/15/24 08:00 10/15/24 08:00 10/15/24 08:00 10/15/24 08:00 10/15/24 08:00 10/15/24 08:00 10/15/24 08:00 Narrative Exam General: Well appearing, well nourished, in no distress. Oriented x 3, normal mood and affect . Ambulating without difficulty. Skin: Good turgor, no rash, unusual bruising or prominent lesions Heart: No cardiomegaly or thrills; regular rate and rhythm, no murmur or gallop Lungs: Clear to auscultation and percussion. No rales, wheeze, or rhonchi Abdomen: Bowel sounds normal, no tenderness, organomegaly, masses, or hernia Back: Spine normal without deformity or tenderness, no CVA tenderness. Perianal abscess s/p I&D. Slight bleed from incision site. Covered with dress. Extremities: No amputations or deformities, cyanosis, edema or varicosities, peripheral pulses intact Musculoskeletal: Normal gait and station. No misalignment, asymmetry, crepitation, defects, tenderness, masses, effusions, decreased range of motion, instability, atrophy or abnormal strength or tone in the head, neck, spine, ribs, pelvis or extremities. Objective Labs 10/15/24 04:21 10/15/24 04:21 Labs: Laboratory Results - last 24 hr 10/15/24 04:21 WBC 16.7 H RBC 4.07 L Hgb 13.1 L Hct 38.4 L MCV 94 MCH 32.2 MCHC 34.1 RDW Std Deviation 41.5 Plt Count 203 Neut % (Auto) 89 H Lymph % (Auto) 6 L [place] % (Auto) 5 Eos % (Auto) 0 Baso % (Auto) 0 Neut # (Auto) 14.8 H Lymph # (Auto) 1.0 [place] # (Auto) 0.8 Eos # (Auto) 0.0 Baso # (Auto) 0.0 Immature Gran # (Auto) 0.11 H Absolute Nucleated RBC 0.00 Immature Gran % 1 H Nucleated RBC % 0 Sodium 139 Potassium 3.6 Chloride 101 Carbon Dioxide 27.4 Anion Gap 11 BUN 12 Creatinine 0.7 Estim Creat Clear Calc 124.2 eGFR > 60 BUN/Creatinine Ratio 17 Glucose 152 H Calculated Osmolality 280 Calcium 8.2 L Corrected Calcium 8.4 L Phosphorus 2.9 Magnesium 2.1 Total Bilirubin 0.3 AST 12 ALT 26 Alkaline Phosphatase 90 Total Protein 6.4 Albumin 3.7 Globulin 2.7 Albumin/Globulin Ratio 1.4 Quality Measures Quality Measures VTE prophylaxis Assessment & Plan Assessment Current Active Medications: Generic Name Dose Route Start Last Admin Trade Name Freq PRN Reason Stop Dose Admin Acetaminophen 650 mg 10/14/24 00:06 Acetaminophen 325 Mg Tablet PO 11/12/24 23:46 Q6H PRN Fever >100.4 or pain 1-3 Hydrocodone Bitart/Acetaminophen 1 tab 10/14/24 01:49 10/15/24 08:40 Hydrocodone/Apap 5/325 Tablet PO 10/18/24 23:46 1 tab Q4HR PRN Administration PAIN SCALE 7-10 (Severe Doxycycline Hyclate 100 mg/ 100 mls @ 100 mls/hr 10/15/24 10:30 10/15/24 11:08 Sodium Chloride IV 10/22/24 10:29 100 mls/hr BID CYN Administration Ceftriaxone Sodium/Dextrose 2 gm in 50 mls @ 100 mls/hr 10/15/24 21:00 Rocephin/D5w 2gm IV 10/22/24 20:59 HS CYN Ketorolac Tromethamine 30 mg 10/14/24 01:50 10/14/24 15:24 Ketorolac Inj 30 Mg/Ml Vial IVP 10/19/24 00:44 30 mg Q6HR PRN Administration PAIN SCALE 4-6 (Moderate Ondansetron HCl 4 mg 10/13/24 23:47 10/14/24 08:40 Ondansetron Inj 2 Mg/Ml Inj 2 Ml IVP 11/12/24 23:46 4 mg Q6H PRN Administration NAUSEA OR VOMITING Protocol Plan 49 year-old male presented to emergency department with a 5-day history of rectal pain and a 2-day history of fevers and chills, admitted for management of a perianal abscess s/p I&D by Dr. Erazo. POD 1. #Perianal abscess (nonseptic) s/p I&D #Intractable rectal pain #Leukocytosis - uptrending SIRS positive with tachycardia, leukocytosis, fever 102.9. Sepsis negative, sofa score 0. CT abd/pelvis: posterior right and left perianal abscess, possible fistula. ESR 73, CRP 10.0 10/14: wound culture showed GPC+ Plan: - Ceftriaxone 2 g IV daily (10/14-10/22). - D/C Flagyl 500 mg IV, switch to doxy 100mg BID for MRSA coverage. (10/15 - 10/22) - Surgery consulted, Dr. Erazo performed I&D on perianal abscess, 30cc pus drained, Anaid drain placed. - Resume regular diet - [place] 5 p.o. every 4 hours as needed for pain. - Blood cultures pending. - D/C Lovenox, put on SCD. #Prediabetes No history of diabetes. Hemoglobin A1c 6.2. Plan: - Patient education about lifestyle modifications (diet, physical activity) - Outpatient follow-up with primary care. #Electrolyte Abnormalities #Hypocalcenimia Plan: - Replete Mg and K with goal of Mg >2 and K >4. - Replete Calcium as needed. Health Maintenance: DVT prophylaxis: SCD GI prophylaxis: None Diet: Regular diet Lines: Peripheral IV Code status: Full code Case discussed with my senior resident Dr. Muñoz Case discussed with my attending Dr. Farheen Krishnamurthy DO PGY 1 Attending Provider Attestation/Addendum I have examined the patient, reviewed labs and imaging findings, discussed the case with the resident(s), and reviewed entered orders. I agree with the plan of care as outlined in this note, with these additional summaries/recommendations: Patient seen at bedside. No acute overnight events. Patient admitted for intractable rectal pain, subjective fever/chills, and perianal abscess. CT scan of abdomen pelvis with contrast revealed posterior perianal abscess which is U- shaped with transverse dimension 3.2 cm in AP dimension 3.4 cm. Questionable fistulous track extending to the intergluteal fold. General surgery was consulted and patient went for incision and drainage of perirectal abscess yesterday with anaid drain placement. Continue IV antibiotics and follow-up culture results. Blood cxs preliminarily show no growth at 24 hours. Abscess cx pending and gram stain showing 2+ GPC. Patient was also informed he is a prediabetic and showed understanding. Continue pain management. Anticipate discharge in the next 24 to 48 hours. Patient updated on the plan and in agreement. All questions answered to satisfaction. Please see residents note for additional details and management. Dr. Farheen MD
[2024-10-15 12:00] VITALS: BP 97/63; PULSE 73; RESP 17; TEMP 36.4; O2SAT 95
[2024-10-15] MEDS: CALCIUM CARBONATE 600 MG TABLET PO (12:39)
[2024-10-15 16:00] VITALS: BP 104/60; PULSE 63; RESP 17; TEMP 36.7; O2SAT 93
[2024-10-15 20:00] VITALS: BP 99/68; PULSE 72; RESP 17; TEMP 36.4; O2SAT 93
[2024-10-15] MEDS: cefTRIAXone/D5w 2gm 2 GM/50 ML BAG IV (20:39)
[2024-10-16] VITALS: BP 115/83; PULSE 68; RESP 16; TEMP 36.2; O2SAT 64
[2024-10-16 04:00] VITALS: BP 103/67; PULSE 68; RESP 18; TEMP 37.1; O2SAT 90
[2024-10-16] MEDS: HYDROcodone/APAP 5/325 TABLET 1 TAB PO (05:12)
[2024-10-16 06:11] LABS: Basophils # (Auto) 0.1 Thou/mm3 (0.0-0.2); Basophils % (Auto) 1 % (0-2.5); Eosinophils # (Auto) 0.1 Thou/mm3 (0.0-0.5); Eosinophils % (Auto) 1 % (0-10); Hematocrit 38.4 % (41.0-53.0); Hemoglobin 13.1 g/dL (13.5-16.0); Immature Granulocytes Auto 0.20 Thou/mm3 (0.00-0.00); Lymphocytes # (Auto) 2.3 Thou/mm3 (1.0-4.8); Lymphocytes % (Auto) 22 % (10-50); Mean Corpuscular HGB Conc 34.1 g/dl (31.0-37.0); Mean Corpuscular Hemoglobin 32.2 pg (25.0-35.0); Mean Corpuscular Volume 94 fL (80-100); Monocytes # (Auto) 0.7 Thou/mm3 (0.0-0.8); Monocytes % (Auto) 7 % (0-12); Neutrophils # (Auto) 7.4 Thou/mm3 (1.8-7.7); Neutrophils % (Auto) 69 % (37-80); Nucleated Red Blood Cell # 0.00 Thou/mm3 (0.00-0.00); Nucleated Red Blood Cell % 0 /100 WBC (0); Platelet Count 220 Thou/mm3 (140-440); RDW Standard Deviation 41.8 fL (35.1-43.9); Red Blood Count 4.07 Miln/mm3 (4.50-5.90); White Blood Count 10.8 Thou/mm3 (3.8-10.6)
[2024-10-16 07:11] LABS: Alanine Aminotransferase 29 U/L (10-49); Albumin, Serum 3.7 gm/dL (3.5-5.0); Albumin/Globulin Ratio 1.4 (1.2-2.2); Alkaline Phosphatase 100 U/L (46-116); Anion Gap 11 (7-16); Aspartate Amino Transferase 19 U/L (0-34); BUN/Creatinine Ratio 13 Ratio (12-20); Bilirubin,Total 0.2 mg/dL (0.3-1.2); Blood Urea Nitrogen 12 mg/dL (9-23); Calcium 8.3 mg/dL (8.3-10.6); Calcium (Corrected) 8.5 mg/dL (8.5-10.1); Carbon Dioxide 28.2 mMol/L (20.0-31.0); Chloride 103 mMol/L (98-107); Creatinine (Component) 0.9 mg/dL (0.6-1.3); Estimated Creatinine Clearance 96.6 mL/min (>60); Globulin 2.7 gm/dL (2.3-3.5); Glucose 108 mg/dL (74-106); Magnesium 1.7 mg/dL (1.6-2.6); Osmolality,Calculated 283 (275-295); Phosphorous 2.9 mg/dL (2.4-5.1); Potassium 4.1 mMol/L (3.4-5.1); Sodium 142 mMol/L (136-145); Total Protein 6.4 gm/dL (5.7-8.2); eGFR > 60 See Note
[2024-10-16 08:00] VITALS: BP 105/77; PULSE 62; RESP 17; TEMP 36.5; O2SAT 93
[2024-10-16] MEDS: DOXYCYCLINE INJ 100 MG in SODIUM CHLORIDE 0.9% (POP) 100 ML IV (08:45)
[2024-10-16] MEDS: CALCIUM CARBONATE 600 MG TABLET PO (08:45)
--- NOTE | 2024-10-16 13:25 | PC.NURSE ---
pt D/C from hospital 1316, ambulate with [employer] to car, accompany by . pt states no pain at this time. All D/C paper are signed
--- NOTE | 2024-10-16 19:08 | ESDS_ITS ---
<Statement entered by Shanell Osborne DO - 10/17/24 16:43> I, Shanell Osborne DO, attest that I was physically present for the [place] portions of the service and evaluated the patient with the resident and I reviewed and discussed the case with the resident and agree with the resident's findings and plans of care as documented above <Statement entered by Dennis Gibson MD - 10/16/24 20:00> Patient was examined and case was reviewed with team including attending physician. Note reviewed, I agree with most of its contents and agree with the patient's care as documented by Dr. Sky Gibson MD PGY-2 Planned Discharge Date 10/16/24 DS: Providers Provider Date of admission: 10/13/24 23:47 Primary care physician: Physician Nunu Primary/Family Admitting Provider: Monika Jordan MD Attending Provider on Admission: Surjit Zhong MD Consults: 10/13/24 23:18 Consult to General Surgery Stat Comment: Consulting Provider: Marleny Erazo Attending Provider on DC: Shanell Osborne DO Discharging Provider: Jamel Swanson DO Anticipated date of discharge: 10/16/24 DS: Diagnosis Problem List Completed Was Problem List Reviewed/Reconciled?: Yes Hospital Course Hospital Course Hospital course: 49-year-old male without significant past medical history presented with a 5-day history of worsening rectal pain and a 2-day history of fevers and chills. CT abdomen/pelvis revealed a posterior perianal abscess with possible fistulous tract. He was admitted for IV antibiotics and surgical evaluation. General surgery was consulted, and the patient was started on IV ceftriaxone and metronidazole, kept NPO for possible procedure. On 10/14/2024, he underwent incision and drainage of the perianal abscess by Dr. Erazo, with evacuation of approximately 30 cc of purulent material and placement of a [place] drain. Postoperatively, antibiotics were adjusted to ceftriaxone and doxycycline for MRSA coverage. Pain was managed with a multimodal regimen. During hospitalization, electrolyte abnormalities were corrected, and the patient was counseled on prediabetes management based on an A1c of 6.2%. He remained hemodynamically stable, afebrile, and was tolerating diet. Leukocytosis improved prior to discharge. He was discharged home in stable condition with oral antibiotics, pain control, wound care instructions, and plans for surgical and primary care follow-up. Patient is medically and physically stable for discharge. Diagnosis: #Perianal abscess, s/p incision and drainage with Anaid drain placement #Intractable rectal pain #Leukocytosis #Prediabetes #Hypocalcemia Discharge Plan: Follow up with primary care physician within 1 week of discharge Please follow up with general surgery within 2 weeks of discharge You have been prescribed Augmentin, please take these medications as prescribed. There is a drain sutured into the incision next to your anus This drain will allow continued drainage of pus If the drain falls out, it is not an emergency but if you have bleeding that does not stop with direct pressure, if you are feeling weak or having difficulty urinating please seek care in ER For any other concerns that are not urgent please feel free to call the office if during business hours at [phone] You may take sitz baths as needed for pain and swelling up to three times per day, 15 minutes at a time Otherwise keep area clean and dry The drain will be removed at a follow-up appointment when you have noticeably less drainage Avoid constipation and diarrhea Should your symptoms recur or worsen patient is instructed to return to the ED. Consulte con chen m?dico de cabecera dentro de la semana posterior al mariusz. Consulte con un cirujano general dentro de las 2 semanas posteriores al mariusz. [place] recetado Augmentin; tome estos medicamentos seg?n lo prescrito. Hay un drenaje suturado en la incisi?n junto al ano. Alexandra drenaje permitir? el drenaje continuo de pus. Si el drenaje se , no es gilles emergencia, david si presenta sangrado que no se detiene con presi?n directa, si se siente d?disha o tiene dificultad para orinar, busque atenci?n en urgencias. Para cualquier otra inquietud que no sea urgente, no dude en llamar a la oficina carrie el horario de atenci?n al [phone]. Puede luiza ba?os de asiento seg?n sea necesario para el dolor y la inflamaci?n, hasta jose veces al d?a, carrie 15 minutos cada vez. De lo contrario, mantenga la mini limpia y seca. El drenaje se retirar? en gilles monica de seguimiento cuando el drenaje sea notablemente [place]. Evite el estre?imiento y la diarrea. Si los s?ntomas reaparecen o empeoran, se le indica al paciente que regrese a urgencias. Case discussed with my senior resident Dr. Beck Gibson and my attending Dr. Osborne. Jamel Swanson DO PGY 1 Status at Discharge Overall status at discharge: patient is back to baseline Time Spent with Patient Time attestation: Total time spent providing and/or coordinating discharge services: Time spent: Greater than 30 minutes Exam Vital Signs Temp Pulse Resp BP Pulse Ox O2 Del Method O2 Flow Rate 97.7 F 62 17 105/77 93 L Room Air 2 10/16/24 08:00 10/16/24 08:00 10/16/24 08:00 10/16/24 08:00 10/16/24 08:00 10/16/24 08:00 10/15/24 08:00 Narrative Exam Physical Exam: General: Well appearing, well nourished, in no distress. Oriented x 3, normal m ood and affect . Ambulating without difficulty. Skin: Good turgor, no rash, unusual bruising or prominent lesions Heart: No cardiomegaly or thrills; regular rate and rhythm, no murmur or gallop Lungs: Clear to auscultation and percussion. No rales, wheeze, or rhonchi Abdomen: Bowel sounds normal, no tenderness, organomegaly, masses, or hernia Back: Spine normal without deformity or tenderness, no CVA tenderness. Perianal abscess s/p I&D. Slight bleed from incision site. Covered with dress. Extremities: No amputations or deformities, cyanosis, edema or varicosities, peripheral pulses intact Musculoskeletal: Normal gait and station. No misalignment, asymmetry, crepitation, defects, tenderness, masses, effusions, decreased range of motion, instability, atrophy or abnormal strength or tone in the head, neck, spine, ribs, pelvis or extremities. Discharge Plan Plan Patient Disposition: HOME (Self Care) Patient condition on transfer: Stable Care Plan Goals: Follow up with primary care physician within 1 week of discharge Please follow up with general surgery within 2 weeks of discharge You have been prescribed Augmentin, please take these medications as prescribed. There is a drain sutured into the incision next to your anus This drain will allow continued drainage of pus If the drain falls out, it is not an emergency but if you have bleeding that does not stop with direct pressure, if you are feeling weak or having difficulty urinating please seek care in ER For any other concerns that are not urgent please feel free to call the office if during business hours at [phone] You may take sitz baths as needed for pain and swelling up to three times per day, 15 minutes at a time Otherwise keep area clean and dry The drain will be removed at a follow-up appointment when you have noticeably less drainage Avoid constipation and diarrhea Should your symptoms recur or worsen patient is instructed to return to the ED. Consulte con chen m?dico de cabecera dentro de la semana posterior al mariusz. Consulte con un cirujano general dentro de las 2 semanas posteriores al mariusz. [place] recetado Augmentin; tome estos medicamentos seg?n lo prescrito. Hay un drenaje suturado en la incisi?n junto al ano. Alexandra drenaje permitir? el drenaje continuo de pus. Si el drenaje se , no es gilles emergencia, david si presenta sangrado que no se detiene con presi?n directa, si se siente d?disha o tiene dificultad para orinar, busque atenci?n en urgencias. Para cualquier otra inquietud que no sea urgente, no dude en llamar a la oficina carrie el horario de atenci?n al [phone]. Puede luiza ba?os de asiento seg?n sea necesario para el dolor y la inflamaci?n, hasta jose veces al d?a, carrie 15 minutos cada vez. De lo contrario, mantenga la mini limpia y seca. El drenaje se retirar? en gilles monica de seguimiento cuando el drenaje sea notablemente sa[place]ia. Evite el estre?imiento y la diarrea. Si los s?ntomas reaparecen o empeoran, se le indica al paciente que regrese a urgencias. Prescriptions/Referrals Prescriptions/Med Rec: New amoxicillin-pot clavulanate 875-125 mg tablet 1 tab PO BID 7 Days Qty: 14 0RF Referrals: Marleny Erazo MD [Physician] - (You will receive a phone call to confirm a follow-up appointment with me on 10/20) No Primary/Family,Physician [Primary Care Provider] - Patient/Caregiver Discharge Instructions Other Discharge Activity Instructions:: There is a drain sutured into the incision next to your anus This drain will allow continued drainage of pus If the drain falls out, it is not an emergency but if you have bleeding that does not stop with direct pressure, if you are feeling weak or having difficulty urinating please seek care in ER For any other concerns that are not urgent please feel free to call the office if during business hours at [phone] You may take sitz baths as needed for pain and swelling up to three times per day, 15 minutes at a time Otherwise keep area clean and dry The drain will be removed at a follow-up appointment when you have noticeably less drainage Avoid constipation and diarrhea Education Materials: Preventing Surgical Site Infections Print Language: Mosotho Stand Alone Forms: Bertha Award Info., Patient Portal Info Letter Discharge Order Discharge Orders: Discharge (Routine); Ordered 10/16/24 Ordered By: Dennis Gibson Quality Discharge Quality Measures none
== END 2024-10-16 13:16 | disposition home or self-care (01) | DRG 226 ==
LOC: SERX 21:48 → SERHOLD 10-14 00:26 → S3NX 10-14 15:02
PROVIDERS: Physician Assistant; Surgery; Admitting Provider Student in an Organized Health Care Education/Training Program; Emergency Provider Emergency Medicine; Visit Provider Student in an Organized Health Care Education/Training Program
PROC: 0D9P0ZZ Drainage of Rectum, Open Approach (ICD-10-PCS; principal; 2024-10-14 14:45)
DX: K61.0 Anal abscess (principal); R65.10 Systemic inflammatory response syndrome (SIRS) of non-infectious origin without acute organ dysfunction; R73.03 Prediabetes; E83.51 Hypocalcemia; K61.2 Anorectal abscess; K64.4 Residual hemorrhoidal skin tags
CPT/HCPCS: 36415; 71045; 74177; 80053; 80061; 80307; 83036; 83605; 83735; 84100; 84145; 85025; 85610; 85652; 85730; 86140; 87040; 87070; 87075; 87076; 87205; 87400; 87811; 96361; 96365; 96366; 96375; 96376; 99284; A4217; A4649; J0330; J0696; J1100; J1650; J1885; J2270; J2405; J2543; J2704; J2765; J3010; J3490; J7030; J7050; J7120; Q9967; A9270; J1836

== ENCOUNTER 2024-10-20 11:22 | Outpatient (AMB) | payer MEDICAID, SELFPAY ==
--- NOTE | 2024-10-20 11:32 | GSCOFFNT_ITS ---
Vital Signs - [facility] 10/20/24 11:33 Height 1.65 m Height Method Measured Weight 80.796 kg Weight Measurement Method Standing Scale BMI 29.7 BP 132/86 H Blood Pressure Source Automatic Cuff Blood Pressure Location Left Upper Arm Position Sitting Respiration 18 Pulse 76 Pulse Source Monitor Temp 97.7 F Temp Source Temporal Artery Scan Pulse Oximetry (%) 96 Oxygen Delivery Method Room Air Med/Allergies Allergies & Medications Allergies No Known Allergies Allergy (Verified 10/20/24 11:34) Medication Reconciliation amoxicillin 875 mg-potassium clavulanate 125 mg tablet 1 tab PO BID 7 days #14 tabs 10/16/24 [Rx Confirmed 10/20/24] MA Intake Visit Data Collection New Patient or Established: Established Patient (seen at [facility] within 3 years) Seen by Clinical Staff ONLY (RN/CONNOR): No Pain Present Currently: Yes Pain Location: Rectum Pain scale:: 5 Pain Scale Used: Cerda-Hunter/Numerical Music Assistant Required: Yes PCP or OBGYN visit in last 3 months: Yes Hx Now: No Do You Feel Safe at Home: Yes Authorities Contacted: N/A Smoking Status Smoking Status: Former smoker Tobacco Use: Cigarette Are you interested in quitting?: No Would you like additional Smoking Cessation Counseling?: No Immunization / Flu Flu Vaccine in the Last 12 Months: Yes Flu Vaccine Exclusion Criteria: Already Received Past Medical History Past Medical History NEUROLOGIC: Negative Neurological Disorders or Seizures CARDIAC: Negative Cardiac Disorders, Myocardial Infarction, Cardiac Arrhythmia, Atrial Fibrillation, Angina, Heart Murmur, Coronary Artery Disease, Atherosclerotic Heart Disease, Peripheral Vascular Disease, Hyperchole sterolemia, Aneurysm, Congestive Heart Failure, Congenital Heart Disease, Valvular Heart Disease, Rheumatic Fever, Cardiomyopathy, Edema, Pericarditis, Cellulitis, Deep Vein Thrombosis, Hypertension, Hypotension or Varicose Veins RESPIRATORY: Negative Chronic Obstructive Pulmonary Disease (COPD), Asthma, Bronchitis, Emphysema, Pneumonia, Pulmonary Fibrosis, Cystic Fibrosis, Tuberculosis, Pulmonary Embolism, Pulmonary Edema or Sleep Apnea GASTROINTESTINAL: Positive Hemorrhoids; Negative Gastrointestinal Disorders, Cirrhosis, Pancreatitis, Celiac Disease, Gall Bladder Disease, Gastrointestinal Bleed, Esophageal Varices, Farooq's Esophagus, Colitis, Ulcerative Colitis, Diverticulitis, Diverticulosis, Ulcer, Colorectal Cancer, Irritable Bowel, Crohn's Disease, Obstructive Bowel, Hiatal Hernia, Gastroesophageal Reflux Disease or Obesity GENITOURINARY: Negative Genitourinary Disorders, Renal Disease, Kidney Stones, Polycystic Kidney Disease, Neurogenic Bladder, Inguinal Hernia, Dialysis, P rostate Cancer or Benign Prostatic Hyperplasia REPRODUCTIVE: Negative Breast Cancer or Testicular Cancer MUSCULOSKELETAL: Negative Muscular Dystrophy, Myasthenia Gravis, Marfan's Syndrome, Arthritis, Rheumatoid Arthritis, Osteoporosis, Degenerative Disk Disease, Gout, Scoliosis, Fibromyalgia, Fractures, Degenerative Joint Disease, Osteomyelitis or Poliovirus ENT: Negative Cataracts, Glaucoma, Blind, Retinal Detachment, Macular Degeneration, Ear Infection, Deafness or Eye Prosthesis ENDOCRINE: Negative Endocrine Disorders, Diabetes Mellitus Type 1, Diabetes Mellitus Type 2, Hypoglycemia, Ashley's Syndrome, Deny's Disease, Hyperthyroidism, Hypothyroidism, Parathyroid Disease, Pituitary Disease, Systemic Lupus Erythematosus, Syndrome of Inappropriate Antidiuretic Hormone (SIADH), Adrenal Disease or Graves' Disease HEMATOLOGIC: Negative Blood Disorders, Anemia, Leukemia, Hemophilia, Thalassemia, Sickle Cell Disease or Clotting Problems PSYCHO/SOCIAL: Positive Anxiety; Negative Psychiatric Problems, Schizophrenia, Recreational Drug Use, Bipolar Disorder, Depression, Behavior Problems, Self-Mutilation, Attention Deficit Disorder, Attention Deficit Hyperactivity Disorder, Depression, Post Traumatic Stress Disorder or Eating Disorder OTHER HISTORY: Negative Autism, Falls, Blood Transfusions, Anesthesia Reactions, MRSA, Cancer, Breast Cancer, Colorectal Cancer, Lung Cancer, Prostate Cancer or Testicular Cancer Family History FAMILY HISTORY: Negative Family Psychiatric Problems, Family Respiratory Disorders, Family Cardiac Disorders, Family Gastrointestinal Problems, Family Cancer, Family Surgery or Family Anesthesia Reaction Surgical History SURGICAL: Negative Cardiac Surgery, Open Heart Surgery, Coronary Artery Bypass Graft, Valve Replacement, Vascular Surgery, Coronary Stent, Cardiac Catheterization, Pacemaker, Angiogram, Auto Implanted Cardiovert Defib, Carotid Endarterectomy, Endocrine Surgery, Thyroidectomy or Vasectomy Social History SMOKING STATUS: Smoking status: Former smoker ALCOHOL: Alcohol Intake: Current ALCOHOL FREQUENCY: Alcohol Intake Frequency: A Few Times a Week HOUSING: Housing: House LIVES WITH: Lives With: Family HPI HPI Narrative Spoke to pt with in-person historic interpreter 49M who presented with a perirectal horseshoe abscess s/p I&D 10/14 here for planned follow up. Pt reports feeling well overall, has episodic pain but is not taking any medications and denies any fever. He had some days without any drainage but for the last few has had what he describes as bloody drainage but he showed me photos of purulent output. He is having regular BMs and has not tried taking any sitz baths ROS Review of Systems Systems Reviewed: All systems reviewed, normal except as documented Objective/Exam General General Appearance: alert, cooperative and well groomed Resp Respiratory exam: Absent respiratory distress Rectal Rectal exam: Present other (right perianal incision with nellie drain in place, minimal erythema medially, no fluctuance and mild tenderness) Results Wound culture reviewed Assessment & Plan Diagnosis / Problem List (1) Abscess, perianal: Status: Acute Assessment & Plan: 49M who presented with a perirectal horseshoe abscess s/p I&D 10/14 here for planned follow up, recovering well overall with ongoing drainage. Will follow up in 10 days and if drainage has significantly decreased will remove drain at that time Office Procedures GNS Level of Care Nursing/Assessment Patient Status: Established Patient Nursing Assessment/Reassesment: Medication Reconciliation, Update PMH in EMR and Vital Signs Coordination of Care: Complex Care and Chronic Disease 1-5, Consent,records obtained, informed consent, Education Simp Pt/Fam, Results/Orders obtained and Staff clarify orders Special Needs: Language special needs Established Patient Charge Established Patient Point Assignment: 90 Established Patient Point Charge: EP Level 3 (80-115) Patient Portal Questionaires Social History Living Situation History Housing: House Tobacco History Smoking Status: Former smoker Alcohol History Alcohol Intake: Current Alcohol Intake Frequency: A Few Times a Week Domestic Abuse History Do You Feel Safe at Home: Yes Review of Systems Report any current symptoms Only answer those that you have currently: Past Medical History Past Medical History Have you ever been diagnosed with any of the following: Neurological Problems Seizures: No Cardiology Problems Myocardial Infarction: No Cardiac Arrhythmia: No Atrial Fibrillation: No Angina: No Heart Murmur: No Coronary Artery Disease: No Atherosclerotic Heart Disease: No Peripheral Vascular Disease: No Hypercholesterolemia: No Aneurysm: No Congestive Heart Failure: No Congenital Heart Disease: No Valvular Heart Disease: No Rheumatic Fever: No Cardiomyopathy: No Edema: No Pericarditis: No Cellulitis: No Deep Vein Thrombosis: No Hypertension: No Hypotension: No Varicose Veins: No Respiratory Problems Chronic Obstructive Pulmonary Disease (COPD): No Asthma: No Bronchitis: No Emphysema: No Pneumonia: No Pulmonary Fibrosis: No Tuberculosis: No Pulmonary Embolism: No Pulmonary Edema: No Sleep Apnea: No Stomache/Intestinal Problems Cirrhosis: No Pancreatitis: No Celiac Disease: No Gall Bladder Disease: No Gastrointestinal Bleed: No Esophageal Varices: No Farooq's Esophagus: No Colitis: No Ulcerative Colitis: No Diverticulitis: No Diverticulosis: No Ulcer: No Colorectal Cancer: No Irritable Bowel: No Crohn's Disease: No Obstructive Bowel: No Hiatal Hernia: No Hemorrhoids: Yes Gastroesophageal Reflux Disease: No Obesity: No Genital/Urinary Problems Renal Disease: No Kidney Stones: No Polycystic Kidney Disease: No Neurogenic Bladder: No Inguinal Hernia: No Dialysis: No Prostate Cancer: No Benign Prostatic Hyperplasia: No Reproductive Problems Breast Cancer: No Testicular Cancer: No Musculoskeletal Problems Muscular Dystrophy: No Myasthenia Gravis: No Marfan's Syndrome: No Arthritis: No Rheumatoid Arthritis: No Osteoporosis: No Degenerative Disk Disease: No Gout: No Scoliosis: No Fibromyalgia: No Fractures: No Degenerative Joint Disease: No Osteomyelitis: No Poliovirus: No Head,Eye,Nose,Throat Problems Cataracts: No Glaucoma: No Blind: No Retinal Detachment: No Macular Degeneration: No Chronic Ear Infections: No Deafness: No Eye Prosthesis: No Endocrine Problems Diabetes Mellitus Type 1: No Diabetes Mellitus Type 2: No Hypoglycemia: No Yale's Syndrome: No [place]'s Disease: No Hyperthyroidism: No Hypothyroidism: No Parathyroid Disease: No Pituitary Disease: No Systemic Lupus Erythematosus: No Syndrome of Inappropriate Antidiuretic Hormone: No Adrenal Disease: No Graves' Disease: No Blood Problems Anemia: No Leukemia: No Hemophilia: No Thalassemia: No Sickle Cell Disease: No Clotting Problems: No Psychologic Problems Schizophrenia: No Recreational Drug Use: No Bipolar Disorder: No Depression: No Anxiety: Yes Behavior Problems: No Self-Mutilation: No Attention Deficit Disorder: No Attention Deficit Hyperactivity Disorder: No Depression: No Post Traumatic Stress Disorder: No Eating Disorder: No Other Problems Autism: No Falls: No Blood Transfusions: No Anesthesia Reactions: No MRSA: No Cancer: No Lung Cancer: No Surgical History Carotid Endarterectomy: No Coronary Artery Bypass Graft: No Valve Replacement: No Pacemaker: No Thyroidectomy: No
[2024-10-20 11:33] VITALS: BP 132/86; PULSE 76; RESP 18; TEMP 36.5; O2SAT 96; BMI 29.7
== END 2024-10-20 12:10 | disposition home or self-care (01) ==
PROVIDERS: Supervising Provider Surgery; Visit Provider Surgery
DX: Z48.817 Encounter for surgical aftercare following surgery on the skin and subcutaneous tissue (principal); Z87.891 Personal history of nicotine dependence
CPT/HCPCS: 99213; G0463

== ENCOUNTER 2024-10-23 07:13 | Emergency (ER) | payer MEDICAID, SELFPAY ==
[2024-10-23 07:14] VITALS: BMI 28.7
[2024-10-23 07:21] VITALS: BP 165/85; PULSE 85; RESP 17; TEMP 36.8; O2SAT 96
--- NOTE | 2024-10-23 07:43 | EDNOTE_ITS ---
<Statement entered by Laurie Vazquez MD - 11/07/24 06:33> As co-signing physician, I was present and available for consult prn. I concur with the plan and care as documented by the midlevel provider. ED Wound/Laceration-RME/HPI General Chief Complaint: General Adult/Misc Complain Stated Complaint: STITCHES FROM DRAINAGE TUBE CAME OUT Time Seen by Provider: 10/23/24 07:25 Source: patient Arrival date/time: 10/23/24 07:13 49-year-old male status post a perirectal horseshoe abscess I&D on 10/14/2024 presents to the emergency room with a chief complaint of his [place] drainage stitching coming undone. Mode of arrival: ambulatory Limitations: no limitations Related Data Previous Rx's ?Medication ?Instructions ?Recorded tramadol 50 mg tablet 50 mg PO Q6H PRN pain #30 ta bs 10/20/24 Allergies Allergy/AdvReac Type Severity Reaction Status Date / Time No Known Allergies Allergy Verified 10/23/24 07:17 Review of Systems Review of Systems Systems Reviewed: All systems reviewed, normal except as documented Constitutional Constitutional: Reports system reviewed and no additional complaints, except as documented, Denies fatigue, Denies fever(s), Denies headache(s) and Denies we akness Eyes Eyes: Reports system reviewed and no additional complaints, except as documented, Denies blurry vision and Denies change in vision ENT Ears, Nose, Mouth, and Throat: Reports system reviewed and no additional complaints, except as documented, Denies otalgia, Denies headache(s), Denies nasal congestion, Denies throat swelling and Denies vertigo Cardiovascular Cardiovascular: Reports system reviewed and no additional complaints, except as documented, Denies chest pain, Denies dyspnea and Denies dyspnea on exertion Respiratory Respiratory: Reports system reviewed and no additional complaints, except as documented, Denies chest congestion, Denies cough, Denies dyspnea, Denies dyspnea on exertion and Denies wheezing Gastrointestinal Gastrointestinal: Reports system reviewed and no additional complaints, except as documented, Denies abdominal pain, Denies cramping, Denies nausea and Denies vomiting Genitourinary Genitourinary: Reports system reviewed and no additional complaints, except as documented, Denies dysuria and Denies hematuria Musculoskeletal Musculoskeletal: Reports system reviewed and no additional complaints, except as documented and Denies back pain Integumentary/Breasts Skin/Breast: Reports system reviewed and no additional complaints, except as documented and Reports wounds Neurologic Neurologic: Reports system reviewed and no additional complaints, except as documented, Denies confusion, Denies headache(s), Denies lack of coordination, Denies vertigo and Denies weakness Psychiatric Psychiatric: Reports system reviewed and no additional complaints, except as documented, Denies anxiety, Denies confusion, Denies depression, Denies paranoia, Denies suicidal ideation and Denies tactile hallucinations Endocrine Endocrine: Reports system reviewed and no additional complaints, except as documented and Denies fatigue Hematologic/Lymphatic Hematologic/Lymphatic: Reports system reviewed and no additional complaints, except as documented and Denies lymphadenopathy Allergic/Immunologic Allergic/Immunologic: Reports system reviewed and no additional complaints, except as documented, Denies throat swelling, Denies urticaria and Denies wheezing Past Medical History Past Medical History NEUROLOGIC: Negative Neurological Disorders or Seizures CARDIAC: Negative Cardiac Disorders, Myocardial Infarction, Cardiac Arrhythmia, Atrial Fibrillation, Angina, Heart Murmur, Coronary Artery Disease, Atherosclerotic Heart Disease, Peripheral Vascular Disease, Hypercholesterole robina, Aneurysm, Congestive Heart Failure, Congenital Heart Disease, Valvular Heart Disease, Rheumatic Fever, Cardiomyopathy, Edema, Pericarditis, Cellulitis, Deep Vein Thrombosis, Hypertension, Hypotension or Varicose Veins RESPIRATORY: Negative Chronic Obstructive Pulmonary Disease (COPD), Asthma, Bronchitis, Emphysema, Pneumonia, Pulmonary Fibrosis, Cystic Fibrosis, Tuberculosis, Pulmonary Embolism, Pulmonary Edema or Sleep Apnea GASTROINTESTINAL: Positive Hemorrhoids; Negative Gastrointestinal Disorders, Cirrhosis, Pancreatitis, Celiac Disease, Gall Bladder Disease, Gastrointestinal Bleed, Esophageal Varices, Farooq's Esophagus, Colitis, Ulcerative Colitis, Diverticulitis, Diverticulosis, Ulcer, Colorectal Cancer, Irritable Bowel, Crohn's Disease, Obstructive Bowel, Hiatal Hernia, Gastroesophageal Reflux Disease or Obesity GENITOURINARY: Negative Genitourinary Disorders, Renal Disease, Kidney Stones, Polycystic Kidney Disease, Neurogenic Bladder, Inguinal Hernia, Dialysis, Prostate Cancer or Benign Prostatic Hyperplasia REPRODUCTIVE: Negative Breast Cancer or Testicular Cancer MUSCULOSKELETAL: Negative Musculoskeletal Disorders, Muscular Dystrophy, Myasthenia Gravis, Marfan's Syndrome, Arthritis, Rheumatoid Arthritis, Osteoporosis, Degenerative Disk Disease, Gout, Scoliosis, Fibromyalgia, Fractures, Degenerative Joint Disease, Osteomyelitis or Poliovirus ENT: Negative Cataracts, Glaucoma, Blind, Retinal Detachment, Macular Degeneration, Ear Infection, Deafness or Eye Prosthesis ENDOCRINE: Negative Endocrine Disorders, Diabetes Mellitus Type 1, Diabetes Mellitus Type 2, Hypoglycemia, Ashley's Syndrome, [place]'s Disease, Hyperthyroidism, Hypothyroidism, Parathyroid Disease, Pituitary Disease, Systemic Lupus Erythematosus, Syndrome of Inappropriate Antidiuretic Hormone (SIADH), Adrenal Disease or Graves' Disease HEMATOLOGIC: Negative Blood Disorders, Anemia, Leukemia, Hemophilia, Thalassemia, Sickle Cell Disease or Clotting Problems PSYCHO/SOCIAL: Positive Anxiety; Negative Psychiatric Problems, Schizophrenia, Recreational Drug Use, Bipolar Disorder, Depression, Behavior Problems, Self-Mutilation, Attention Deficit Disorder, Attention Deficit Hyperactivity Disorder, Depression, Post Traumatic Stress Disorder or Eating Disorder OTHER HISTORY: Negative Autoimmune Disease, Autism, Falls, Blood Transfusions, Anesthesia Reactions, MRSA, Cancer, Breast Cancer, Colorectal Cancer, Lung Cancer, Prostate Cancer or Testicular Cancer Family History FAMILY HISTORY: Negative Family Psychiatric Problems, Family Respiratory Disord ers, Family Cardiac Disorders, Family Gastrointestinal Problems, Family Cancer, Family Surgery or Family Anesthesia Reaction Surgical History SURGICAL: Negative Cardiac Surgery, Open Heart Surgery, Coronary Artery Bypass Graft, Valve Replacement, Vascular Surgery, Coronary Stent, Cardiac Catheterization, Pacemaker, Angiogram, Auto Implanted Cardiovert Defib, Carotid Endarterectomy, Endocrine Surgery, Thyroidectomy or Vasectomy Social History SMOKING STATUS: Never smoker SUBSTANCE USE: does not use ED Exam General Limitations: Present no limitations General appearance: Present alert and in no apparent distress Head Head exam: Present atraumatic Eye Eye exam: Present normal appearance, PERRL and EOMI ENT ENT exam: Present normal exam, normal oropharynx and mucous membranes moist Neck Neck exam: Present normal inspection, full ROM and trachea midline Chest Chest inspection: Present normal inspection and symmetric chest wall rise Respiratory Respiratory exam: Present normal lung sounds bilaterally Cardiovascular Cardiovascular exam: Present regular rate, normal rhythm and normal heart sounds Abdominal Exam Abdominal exam: Present soft and normal bowel sounds Rectal Exam Rectal exam: Present tenderness and other (Patient has a [place] drainage with suturing that is coming undone after having a horseshoe perirectal abscess I&D on 10/14/2024) Extremities Exam Extremities exam: Present normal inspection and full ROM Back Exam Back exam: Present normal inspection and full ROM Neurological Exam Neurological exam: Present alert, oriented X3 and CN II-XII intact Psychiatric Psychiatric exam: Present normal affect and normal mood Skin Skin exam: Present warm, dry, intact and normal color Course Quality Measures none Vital Signs Vital signs: Vital Signs Temperature 98.3 F 10/23/24 07:21 Pulse Rate 85 10/23/24 07:21 Respiratory Rate 17 10/23/24 07:21 Blood Pressure 165/85 H 10/23/24 07:21 Pulse Oximetry (%) 96 10/23/24 07:21 Oxygen Delivery Method Room Air 10/23/24 07:21 Wound / Laceration MDM Narrative MDM Narrative:: 49-year-old male status post a perirectal horseshoe abscess I&D on 10/14/2024 presents to the emergency room with a chief complaint of his [place] drainage stitching coming undone. Patient is hemodynamically stable. He is afebrile not tachycardic and not tachypneic Physical examination shows tenderness and pain to the right side of his rectal area. Patient recently had a horseshoe perirectal abscess I&D done on 10/14/2024. Today the patient presents with a complaint of his [place] drain stitching coming undone. This procedure was done by Dr. Story. I called our on-call general surgeon Dr Wallis and his recommendations were to remove the [place] drain, the wound, and place a gauze dressing. The wound appears to be healing appropriately. Per patient the wound is no longer draining like he used to be. According to the patient the plan was to have the drainage removed on but since it was still draining a little bit they decided to wait till next Thursday. The drainage was removed a dressing was placed patient was educated to keep the area clean and dry. Patient was educated to continue to take his antibiotics Patient was discharged and educated to follow-up with primary care provider in the next 24 to 48 hours and return to the emergency room for any evidence of worsening signs or symptoms Patient data External records reviewed:: [facility] previous records Clinical information provided by:: patient Social determinants that could affect healthcare access:: none Patient has the following chronic illnesses:: No chronic illness How is presenting disease/condition affected by chronic disease/condition?: no chronic disease Evaluation data The following diagnostics were reviewed and interpreted by me:: lab results and radiology exam(s) Lab and/or radiology exams considered but not ordered:: Labs and radiology exams considered and ordered Interpretation Summary: N/A Medications / Prescriptions Medications or Prescriptions considered but not ordered:: No medication given Medication administrations:: No medication given Consultations Consultation(s) initiated? (list below): No Diagnosis Wound Differential Diagnosis: laceration, abscess and other (Perirectal abscess drainage examined to the level) Most likely diagnosis given after review of the tests above:: Perirectal abscess drainage accidental removal Admission Indicated Admission indicated?: not indicated Admission Request Was there a request for admission?: No Disposition Plan Disposition Plan: Discharge Discharge Attestation Discharge Attestation: The patient and all family members were given an opportunity to ask questions and understood the discharge instructions. Discharge instructions specifically effects, indications for sooner follow up or return to the emergency department, and the expected course of current diagnosis. Patient condition: Stable Discharge Plan Plan Patient Disposition: HOME (Self Care) Discharge Disposition comment: Stable Prescriptions/Referrals Prescriptions/Med Rec: No Action tramadol 50 mg tablet 50 mg PO Q6H MDD 4 tabs PRN (Reason: pain) Qty: 30 0RF Rx Instructions: Take 1 tablet as needed every 6 hours for severe pain Problem List Clinical Impression: Abscess, perianal Patient/Caregiver Discharge Instructions Education Materials: Understanding Perianal Abscess Additional Instructions: Llame y programe gilles monica con chen cirujano general, el Dr. Story. Contin?e tomando los antibi?ticos recetados por chen cirujano general. Se le retir? el drenaje [place]. Se coloc? un ap?sito sobre la herida. Mantenga la mini limpia, seca y sin humedad. Ante cualquier signo de empeoramiento de los signos o s?ntomas, acuda a urgencias de inmediato. Print Language: Armenian Stand Alone Forms: Bertha Award Info., Patient Portal Info Letter PA/BLIND AIDE Supervising Physician PA/BLIND AIDE Supervising Physician: Dr. VAZQUEZ
== END 2024-10-23 07:42 | disposition home or self-care (01) ==
PROVIDERS: Emergency Provider Emergency Medicine
DX: K61.31 Horseshoe abscess (principal); K61.2 Anorectal abscess
CPT/HCPCS: 99282

== ENCOUNTER 2024-10-31 09:51 | Outpatient (AMB) | payer MEDICAID, SELFPAY ==
[2024-10-31 09:58] VITALS: BP 123/79; PULSE 71; RESP 20; TEMP 36.2; O2SAT 95; BMI 29.0
--- NOTE | 2024-10-31 09:58 | PD.GSCLVISIT ---
Vital Signs - [facility] 10/31/24 09:58 Height 1.65 m Height Method Measured Weight 78.982 kg Weight Measurement Method Standing Scale BMI 29.0 BP 123/79 Blood Pressure Source Automatic Cuff Blood Pressure Location Left Upper Arm Position Sitting Respiration 20 Pulse 71 Pulse Source Monitor Temp 97.2 F Temp Source Temporal Artery Scan Pulse Oximetry (%) 95 Oxygen Delivery Method Room Air Med/Allergies Allergies & Medications Allergies No Known Allergies Allergy (Verified 10/31/24 09:59) Medication Reconciliation tramadol 50 mg tablet 50 mg PO Q6H PRN pain #30 tabs 10/20/24 [Rx Confirmed 10/31/24] MA Intake Visit Data Collection New Patient or Established: Established Patient (seen at [facility] within 3 years) Seen by Clinical Staff ONLY (RN/MA): No Reason for Visit:: 1 WEEK F/U PERIRECTAL ABSCESS Pain Present Currently: Yes Pain Location: Rectum Pain scale:: 3 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 PCP or OBGYN visit in last 3 months: Yes Hx Now: No Do You Feel Safe at Home: Yes Authorities Contacted: N/A Smoking Status Smoking Status: Never smoker Immunization / Flu Flu Vaccine in the Last 12 Months: Yes Flu Vaccine Exclusion Criteria: Already Received Past Medical History Past Medical History NEUROLOGIC: Negative Neurological Disorders or Seizures CARDIAC: Negative Cardiac Disorders, Myocardial Infarction, Cardiac Arrhythmia, Atrial Fibrillation, Angina, Heart Murmur, Coronary Artery Disease, Atherosclerotic Heart Disease, Peripheral Vascular Disease, Hypercholesterolemia, Aneurysm, Congestive Heart Failure, Congenital Heart Disease, Valvular Heart Disease, Rheumatic Fever, Cardiomyopathy, Edema, Pericarditis, Cellulitis, Deep Vein Thrombosis, Hypertension, Hypotension or Varicose Veins RESPIRATORY: Negative Chronic Obstructive Pulmonary Disease (COPD), Asthma, Bronchitis, Emphysema, Pneumonia, Pulmonary Fibrosis, Cystic Fibrosis, Tuberculosis, Pulmonary Embolism, Pulmonary Edema or Sleep Apnea GASTROINTESTINAL: Positive Hemorrhoids; Negative Gastrointestinal Disorders, Cirrhosis, Pancreatitis, Celiac Disease, Gall Bladder Disease, Gastrointestinal Bleed, Esophageal Varices, Farooq's Esophagus, Colitis, Ulcerative Colitis, Diverticulitis, Diverticulosis, Ulcer, Colorectal Cancer, Irritable Bowel, Crohn's Disease, Obstructive Bowel, Hiatal Hernia, Gastroesophageal Reflux Disease or Obesity GENITOURINARY: Negative Genitourinary Disorders, Renal Disease, Kidney Stones, Polycystic Kidney Disease, Neurogenic Bladder, Inguinal Hernia, Dialysis, Prostate Cancer or Benign Prostatic Hyperplasia REPRODUCTIVE: Negative Breast Cancer or Testicular Cancer MUSCULOSKELETAL: Negative Muscular Dystrophy, Myasthenia Gravis, Marfan's Syndrome, Arthritis, Rheumatoid Arthritis, Osteoporosis, Degenerative Disk Disease, Gout, Scoliosis, Fibromyalgia, Fractures, Degenerative Joint Disease, Osteomyelitis or Poliovirus ENT: Negative Cataracts, Glaucoma, Blind, Retinal Detachment, Macular Degeneration, Ear Infection, Deafness or Eye Prosthesis ENDOCRINE: Negative Endocrine Disorders, Diabetes Mellitus Type 1, Diabetes Mellitus Type 2, Hypoglycemia, Newcomb's Syndrome, Grafton's Disease, Hyperthyroidism, Hypothyroidism, Parathyroid Disease, Pituitary Disease, Systemic Lupus Erythematosus, Syndrome of Inappropriate Antidiuretic Hormone (SIADH), Adrenal Disease or Graves' Disease HEMATOLOGIC: Negative Blood Disorders, Anemia, Leukemia, Hemophilia, Thalassemia, Sickle Cell Disease or Clotting Problems PSYCHO/SOCIAL: Positive Anxiety; Negative Psychiatric Problems, Schizophrenia, Recreational Drug Use, Bipolar Disorder, Depression, Behavior Problems, Self-Mutilation, Attention Deficit Disorder, Attention Deficit Hyperactivity Disorder, Depression, Post Traumatic Stress Disorder or Eating Disorder OTHER HISTORY: Negative Autism, Falls, Blood Transfusions, Anesthesia Reactions, MRSA, Cancer, Breast Cancer, Colorectal Cancer, Lung Cancer, Prostate Cancer or Testicular Cancer Family History FAMILY HISTORY: Negative Family Psychiatric Problems, Family Respiratory Disorders, Family Cardiac Disorders, Family Gastrointestinal Problems, Family Cancer, Family Surgery or Family Anesthesia Reaction Surgical History SURGICAL: Negative Cardiac Surgery, Open Heart Surgery, Coronary Artery Bypass Graft, Valve Replacement, Vascular Surgery, Coronary Stent, Cardiac Catheterization, Pacemaker, Angiogram, Auto Implanted Cardiovert Defib, Carotid Endarterectomy, Endocrine Surgery, Thyroidectomy or Vasectomy Social History SMOKING STATUS: Smoking status: Never smoker ALCOHOL: Alcohol Intake: Current ALCOHOL FREQUENCY: Alcohol Intake Frequency: A Few Times a Week HOUSING: Housing: House LIVES WITH: Lives With: Family HPI HPI Narrative 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 Pt reports feeling well overall, he went to ER last week because drain was almost out and it was fully removed at that time. He states his pain is 3/10 and he is having minimal drainage, still having healthy BMs without any straining or diarrhea ROS Review of Systems Systems Reviewed: All systems reviewed, normal except as documented Objective/Exam General General Appearance: alert, cooperative and well groomed Resp Respiratory exam: Absent respiratory distress Rectal Rectal exam: Present other (healing abscess cavity at the right perianal region with beefy red granulation tissue at base, nontender, no surrounding erythema) Assessment & Plan Diagnosis / Problem List (1) Abscess, perianal: Status: Acute Assessment & Plan: 49M who presented with a perirectal horseshoe abscess s/p I&D 10/14, recovering well with drain now removed. As the area is healing well he does not require any intervention for now but I provided detailed return precautions including the 50% chance of fistula development. All questions were answered and pt expressed understanding Office Procedures GNS Level of Care Nursing/Assessment Patient Status: Established Patient Nursing Assessment/Reassesment: Medication Reconciliation, Update PMH in EMR and Vital Signs Coordination of Care: Complex Care and Chronic Disease 1-5, Consent,records obtained, informed consent, Education Simp Pt/Fam, Results/Orders obtained and Staff clarify orders Special Needs: Language special needs Established Patient Charge Established Patient Point Assignment: 90 Established Patient Point Charge: EP Level 3 (80-115) Patient Portal Questionaires Social History Living Situation History Housing: House Tobacco History Smoking Status: Never smoker Alcohol History Alcohol Intake: Current Alcohol Intake Frequency: A Few Times a Week Domestic Abuse History Do You Feel Safe at Home: Yes Review of Systems Report any current symptoms Only answer those that you have currently: Past Medical History Past Medical History Have you ever been diagnosed with any of the following: Neurological Problems Seizures: No Cardiology Problems Myocardial Infarction: No Cardiac Arrhythmia: No Atrial Fibrillation: No Angina: No Heart Murmur: No Coronary Artery Disease: No Atherosclerotic Heart Disease: No Peripheral Vascular Disease: No Hypercholesterolemia: No Aneurysm: No Congestive Heart Failure: No Congenital Heart Disease: No Valvular Heart Disease: No Rheumatic Fever: No Cardiomyopathy: No Edema: No Pericarditis: No Cellulitis: No Deep Vein Thrombosis: No Hypertension: No Hypotension: No Varicose Veins: No Respiratory Problems Chronic Obstructive Pulmonary Disease (COPD): No Asthma: No Bronchitis: No Emphysema: No Pneumonia: No Pulmonary Fibrosis: No Tuberculosis: No Pulmonary Embolism: No Pulmonary Edema: No Sleep Apnea: No Stomache/Intestinal Problems Cirrhosis: No Pancreatitis: No Celiac Disease: No Gall Bladder Disease: No Gastrointestinal Bleed: No Esophageal Varices: No Farooq's Esophagus: No Colitis: No Ulcerative Colitis: No Diverticulitis: No Diverticulosis: No Ulcer: No Colorectal Cancer: No Irritable Bowel: No Crohn's Disease: No Obstructive Bowel: No Hiatal Hernia: No Hemorrhoids: Yes Gastroesophageal Reflux Disease: No Obesity: No Genital/Urinary Problems Renal Disease: No Kidney Stones: No Polycystic Kidney Disease: No Neurogenic Bladder: No Inguinal Hernia: No Dialysis: No Prostate Cancer: No Benign Prostatic Hyperplasia: No Reproductive Problems Breast Cancer: No Testicular Cancer: No Musculoskeletal Problems Muscular Dystrophy: No Myasthenia Gravis: No Marfan's Syndrome: No Arthritis: No Rheumatoid Arthritis: No Osteoporosis: No Degenerative Disk Disease: No Gout: No Scoliosis: No Fibromyalgia: No Fractures: No Degenerative Joint Disease: No Osteomyelitis: No Poliovirus: No Head,Eye,Nose,Throat Problems Cataracts: No Glaucoma: No Blind: No Retinal Detachment: No Macular Degeneration: No Chronic Ear Infections: No Deafness: No Eye Prosthesis: No Endocrine Problems Diabetes Mellitus Type 1: No Diabetes Mellitus Type 2: No Hypoglycemia: No Newcomb's Syndrome: No Deny's Disease: No Hyperthyroidism: No Hypothyroidism: No Parathyroid Disease: No Pituitary Disease: No Systemic Lupus Erythematosus: No Syndrome of Inappropriate Antidiuretic Hormone: No Adrenal Disease: No Graves' Disease: No Blood Problems Anemia: No Leukemia: No Hemophilia: No Thalassemia: No Sickle Cell Disease: No Clotting Problems: No Psychologic Problems Schizophrenia: No Recreational Drug Use: No Bipolar Disorder: No Depression: No Anxiety: Yes Behavior Problems: No Self-Mutilation: No Attention Deficit Disorder: No Attention Deficit Hyperactivity Disorder: No Depression: No Post Traumatic Stress Disorder: No Eating Disorder: No Other Problems Autism: No Falls: No Blood Transfusions: No Anesthesia Reactions: No MRSA: No Cancer: No Lung Cancer: No Surgical History Carotid Endarterectomy: No Coronary Artery Bypass Graft: No Valve Replacement: No Pacemaker: No Thyroidectomy: No
== END 2024-10-31 10:30 | disposition home or self-care (01) ==
LOC: HODSRG 09:51
PROVIDERS: Supervising Provider Surgery; Visit Provider Surgery
DX: Z48.817 Encounter for surgical aftercare following surgery on the skin and subcutaneous tissue (principal)
CPT/HCPCS: 99213; G0463

== ENCOUNTER 2024-11-02 04:45 | Emergency (ER) | payer MEDICAID, SELFPAY ==
[2024-11-02 04:46] VITALS: BMI 29.9
[2024-11-02 05:37] VITALS: BP 115/73; PULSE 59; RESP 16; TEMP 37.2; O2SAT 98
--- NOTE | 2024-11-02 06:23 | PD.EDSKIN ---
ED Skin Abcess FB-RME/HPI General Chief complaint: Skin/Abscess/Foreign Body Stated complaint: WOUND CHECK ON RT [place] AFTER SURGERY X2WKS Time Seen by Provider: 11/02/24 06:14 Arrival date/time: 11/02/24 04:45 49-year-old male presents for wound check, patient had operation secondary to perirectal abscess patient reports that he noticed some pain and drainage at the site today patient reports he followed up with his surgeon 2 days ago and states everything was okay at that time. Limitations: no limitations Related Data Previous Rx's ?Medication ?Instructions ?Recorded tramadol 50 mg tablet 50 mg PO Q6H PRN pain #30 tabs 10/20/24 amoxicillin 875 mg-potassium 1 tab PO BID 7 days #14 tabs 11/02/24 clavulanate 125 mg tablet hydrocortisone acetate 25 mg 25 mg CA BID #24 ea 11/02/24 rectal suppository (Anusol-HC) ibuprofen 600 mg tablet 600 mg PO Q6H #30 tabs 11/02/24 Allergies Allergy/AdvReac Type Severity Reaction Status Date / Time No Known Allergies Allergy Verified 10/31/24 09:59 Review of Systems Review of Systems Systems Reviewed: All systems reviewed, normal except as documented Constitutional Constitutional: Reports system reviewed and no additional complaints, except as documented, Denies fever(s) and Denies headache(s) Eyes Eyes: Reports system reviewed and no additional complaints, except as documented and Denies blurry vision ENT Ears, Nose, Mouth, and Throat: Reports system reviewed and no additional complaints, except as documented, Denies headache(s), Denies nasal congestion and Denies nasal discharge Cardiovascular Cardiovascular: Reports system reviewed and no additional complaints, except as documented, Denies chest pain and Denies dyspnea Respiratory Respiratory: Reports system reviewed and no additional complaints, except as documented, Denies chest congestion, Denies cough and Denies dyspnea Gastrointestinal Gastrointestinal: Reports system reviewed and no additional complaints, except as documented, Denies abdominal pain and Reports other (Hemorrhoid) Integumentary/Breasts Skin/Breast: Reports system reviewed and no additional complaints, except as documented, Denies rash and Reports wounds (Postsurgical wound) Neurologic Neurologic: Reports system reviewed and no additional complaints, except as documented, Reports as per HPI and Denies headache(s) Past Medical History Past Medical History NEUROLOGIC: Negative Neurological Disorders or Seizures CARDIAC: Negative Cardiac Disorders, Myocardial Infarction, Cardiac Arrhythmia, Atrial Fibrillation, Angina, Heart Murmur, Coronary Artery Disease, Atherosclerotic Heart Disease, Peripheral Vascular Disease, Hypercholesterolemia, Aneurysm, Congestive Heart Failure, Congenital Heart Disease, Valvular Heart Disease, Rheumatic Fever, Cardiomyopathy, Edema, Pericarditis, Cellulitis, Deep Vein Thrombosis, Hypertension, Hypotension or Varicose Veins RESPIRATORY: Negative Chronic Obstructive Pulmonary Disease (COPD), Asthma, Bronchitis, Emphysema, Pneumonia, Pulmonary Fibrosis, Cystic Fibrosis, Tuberculosis, Pulmonary Embolism, Pulmonary Edema or Sleep Apnea GASTROINTESTINAL: Positive Hemorrhoids; Negative Gastrointestinal Disorders, Cirrhosis, Pancreatitis, Celiac Disease, Gall Bladder Disease, Gastrointestinal Bleed, Esophageal Varices, Farooq's Esophagus, Colitis, Ulcerative Colitis, Diverticulitis, Diverticulosis, Ulcer, Colorectal Cancer, Irritable Bowel, Crohn's Disease, Obstructive Bowel, Hiatal Hernia, Gastroesophageal Reflux Disease or Obesity GENITOURINARY: Negative Genitourinary Disorders, Renal Disease, Kidney Stones, Polycystic Kidney Disease, Neurogenic Bladder, Inguinal Hernia, Dialysis, Prostate Cancer or Benign Prostatic Hyperplasia REPRODUCTIVE: Negative Breast Cancer or Testicular Cancer MUSCULOSKELETAL: Negative Musculoskeletal Disorders, Muscular Dystrophy, Myasthenia Gravis, Marfan's Syndrome, Arthritis, Rheumatoid Arthritis, Osteoporosis, Degenerative Disk Disease, Gout, Scoliosis, Fibromyalgia, Fractures, Degenerative Joint Disease, Osteomyelitis or Poliovirus ENT: Negative Cataracts, Glaucoma, Blind, Retinal Detachment, Macular Degeneration, Ear Infection, Deafness or Eye Prosthesis ENDOCRINE: Negative Endocrine Disorders, Diabetes Mellitus Type 1, Diabetes Mellitus Type 2, Hypoglycemia, Ashley's Syndrome, Deny's Disease, Hyperthyroidism, Hypothyroidism, Parathyroid Disease, Pituitary Disease, Systemic Lupus Erythematosus, Syndrome of Inappropriate Antidiuretic Hormone (SIADH), Adrenal Disease or Graves' Disease HEMATOLOGIC: Negative Blood Disorders, Anemia, Leukemia, Hemophilia, Thalassemia, Sickle Cell Disease or Clotting Problems PSYCHO/SOCIAL: Positive Anxiety; Negative Psychiatric Problems, Schizophrenia, Recreational Drug Use, Bipolar Disorder, Depression, Behavior Problems, Self-Mutilation, Attention Deficit Disorder, Attention Deficit Hyperactivity Disorder, Depression, Post Traumatic Stress Disorder or Eating Disorder OTHER HISTORY: Negative Autoimmune Disease, Autism, Falls, Blood Transfusions, Anesthesia Reactions, MRSA, Cancer, Breast Cancer, Colorectal Cancer, Lung Cancer, Prostate Cancer or Testicular Cancer Family History FAMILY HISTORY: Negative Family Psychiatric Problems, Family Respiratory Disorders, Family Cardiac Disorders, Family Gastrointestinal Problems, Family Cancer, Family Surgery or Family Anesthesia Reaction Surgical History SURGICAL: Negative Cardiac Surgery, Open Heart Surgery, Coronary Artery Bypass Graft, Valve Replacement, Vascular Surgery, Coronary Stent, Cardiac Catheterization, Pacemaker, Angiogram, Auto Implanted Cardiovert Defib, Carotid Endarterectomy, Endocrine Surgery, Thyroidectomy or Vasectomy Social History SMOKING STATUS: Never smoker SUBSTANCE USE: does not use ED Exam General Limitations: Present no limitations General appearance: Present alert and in no apparent distress Head Head exam: Present atraumatic, normocephalic and normal inspection Eye Eye exam: Present normal appearance, PERRL and EOMI; Absent conjunctival injection ENT ENT exam: Present normal exam, normal oropharynx and mucous membranes moist Neck Neck exam: Present normal inspection, full ROM and trachea midline Chest Chest inspection: Present normal inspection and symmetric chest wall rise Respiratory Respiratory exam: Present normal lung sounds bilaterally Cardiovascular Cardiovascular exam: Present regular rate, normal rhythm and normal heart sounds Abdominal Exam Abdominal exam: Present soft and normal bowel sounds; Absent distention, tenderness, guarding, rebound or rigidity Rectal Exam Rectal exam: Present hemorrhoids; Absent black stool Extremities Exam Extremities exam: Present normal inspection and full ROM Back Exam Back exam: Present normal inspection and full ROM Neurological Exam Neurological exam: Present alert, oriented X3 and CN II-XII intact Psychiatric Psychiatric exam: Present normal affect and normal mood Skin Skin exam: Present warm, dry, intact and other (Postsurgical wound no evidence of infection no surrounding erythema no palpable masses or abscesses) Course Quality Measures none Vital Signs Vital signs: Vital Signs Temperature 98.9 F 11/02/24 05:37 Pulse Rate 59 L 11/02/24 05:37 Respiratory Rate 16 11/02/24 05:37 Blood Pressure 115/73 11/02/24 05:37 Pulse Oximetry (%) 98 11/02/24 05:37 Oxygen Delivery Method Room Air 11/02/24 05:37 O2 saturation 98% room air within normal limits Skin / Abscess / Foreign Body MDM Narrative MDM Narrative:: 49-year-old male presents for wound check, patient had operation secondary to perirectal abscess patient reports that he noticed some pain and drainage at the site today patient reports he followed up with his surgeon 2 days ago and states everything was okay at that time. On exam patient hemodynamically stable patient does not appear ill or toxic no acute distress Exam the patient's rectum patient does have a hemorrhoid and he also has a small postsurgical wound which appears to be healing well Patient given medication for the hemorrhoid as well as a course of antibiotics Explained to the patient he must follow-up with his surgeon today for further evaluation for worsening symptoms or concerns return immediately Patient data External records reviewed:: [facility] previous records Clinical information provided by:: patient Social determinants that could affect healthcare access:: none Patient has the following chronic illnesses:: See history How is presenting disease/condition affected by chronic disease/condition?: caused by Evaluation data The following diagnostics were reviewed and interpreted by me:: other (specify) Lab and/or radiology exams considered but not ordered:: Considered not indicated Interpretation Summary: N/A Medications / Prescriptions Medications or Prescriptions considered but not ordered:: Given Medication administrations:: Given Consultations Consultation(s) initiated? (list below): No Diagnosis Skin/Abscess Differential Diagnosis: abscess of skin or subcutaneous tissue and cellulitis Most likely diagnosis given after review of the tests above:: Perirectal abscess, hemorrhoid Admission Indicated Admission indicated?: not indicated Admission Request Was there a request for admission?: No Disposition Plan Disposition Plan: Discharge Discharge Attestation Discharge Attestation: The patient and all family members were given an opportunity to ask questions and understood the discharge instructions. Discharge instructions specifically effects, indications for sooner follow up or return to the emergency department, and the expected course of current diagnosis. Patient condition: Stable Discharge Plan Plan Patient Disposition: HOME (Self Care) Discharge Disposition comment: Stable Prescriptions/Referrals Prescriptions/Med Rec: New hydrocortisone acetate [Anusol-HC] 25 mg suppository 25 mg CA BID Qty: 24 0RF ibuprofen 600 mg tablet 600 mg PO Q6H Qty: 30 0RF amoxicillin-pot clavulanate 875-125 mg tablet 1 tab PO BID 7 Days Qty: 14 0RF No Action tramadol 50 mg tablet 50 mg PO Q6H MDD 4 tabs PRN (Reason: pain) Qty: 30 0RF Rx Instructions: Take 1 tablet as needed every 6 hours for severe pain Referrals: Temporary Provider,ED [Primary Care Provider] - 11/04/24 Problem List Clinical Impression: Abscess, perianal, Hemorrhoid Patient/Caregiver Discharge Instructions Education Materials: ED Hemorrhoids Additional Instructions: Please follow-up with Dr. Story within the next 24 to 48 hours for worsening symptoms or concerns return immediately Print Language: Palestinian Stand Alone Forms: Bertha Award Info., Patient Portal Info Letter PA/FINANCIAL MANAGER Supervising Physician PA/FINANCIAL MANAGER Supervising Physician: Dr. gilmore
== END 2024-11-02 06:49 | disposition home or self-care (01) ==
LOC: SERX 07:14
PROVIDERS: Emergency Provider Emergency Medicine; PCP Family Medicine
DX: K61.1 Rectal abscess (principal); K64.9 Unspecified hemorrhoids
CPT/HCPCS: 99281

== ENCOUNTER 2024-11-10 13:25 | Outpatient (AMB) | payer MEDICAID, SELFPAY ==
--- NOTE | 2024-11-10 13:44 | GSCOFFNT_ITS ---
[facility] Sign[facility] - [facility] 11/10/24 13:45 Height 1.65 m Height Method Measured Weight 78.16 kg Weight Measurement Method Standing Scale BMI 28.7 BP 100/44 L Blood Pressure Source Automatic Cuff Blood Pressure Location Left Upper Arm Position Sitting Respiration 18 Pulse 68 Pulse Source Monitor Temp 97.6 F Temp Source Temporal Artery Scan Pulse Oximetry (%) 94 L Oxygen Delivery Method Room Air Med/Allergies Allergies & Medications Allergies No Known Allergies Allergy (Verified 11/10/24 13:46) Medication Reconciliation tramadol 50 mg tablet 50 mg PO Q6H PRN pain #30 tabs 10/20/24 [Rx Confirmed 11/10/24] hydrocortisone acetate 25 mg rectal suppository (Anusol-HC) 25 mg [place] BID #24 ea 11/02/24 [Rx Confirmed 11/10/24] ibuprofen 600 mg tablet 600 mg PO Q6H #30 tabs 11/02/24 [Rx Confirmed 11/10/24] MA Intake Visit Data Collection New Patient or Established: Established Patient (seen at [facility] within 3 years) Seen by Clinical Staff ONLY (RN/MA): No Reason for Visit:: FOLLOW UP FISTULA Pain Present Currently: No Licensed Optician Required: Yes PCP or OBGYN visit in last 3 months: Yes Hx Now: No Do You Feel Safe at Home: Yes Authorities Contacted: N/A Smoking Status Smoking Status: Never smoker Immunization / Flu Flu Vaccine in the Last 12 Months: No Flu Vaccine Exclusion Criteria: No Exclusion Criteria Past Medical History Past Medical History NEUROLOGIC: Negative Neurological Disorders or Seizures CARDIAC: Negative Cardiac Disorders, Myocardial Infarction, Cardiac Arrhythmia, Atrial Fibrillation, Angina, Heart Murmur, Coronary Artery Disease, Atherosclerotic Heart Disease, Peripheral Vascular Disease, Hypercholesterolemia, Aneurysm, Congestive Heart Failure, Congenital Heart Disease, Valvular Heart Disease, Rheumatic Fever, Cardiomyopathy, Edema, Pericarditis, Cellulitis, Deep Vein Thrombosis, Hypertension, Hypotension or Varicose Veins RESPIRATORY: Negative Chronic Obstructive Pulmonary Disease (COPD), Asthma, Bronchitis, Emphysema, Pneumonia, Pulmonary Fibrosis, Cystic Fibrosis, Tuberculosis, Pulmonary Embolism, Pulmonary Edema or Sleep Apnea GASTROINTESTINAL: Positive Hemorrhoids; Negative Gastrointestinal Disorders, Cirrhosis, Pancreatitis, Celiac Disease, Gall Bladder Disease, Gastrointestinal Bleed, Esophageal Varices, Farooq's Esophagus, Colitis, Ulcerative Colitis, Diverticulitis, Diverticulosis, Ulcer, Colorectal Cancer, Irritable Bowel, Crohn's Disease, Obstructive Bowel, Hiatal Hernia, Gastroesophageal Reflux Disease or Obesity GENITOURINARY: Negative Genitourinary Disorders, Renal Disease, Kidney Stones, Polycystic Kidney Disease, Neurogenic Bladder, Inguinal Hernia, Dialysis, Prostate Cancer or Benign Prostatic Hyperplasia REPRODUCTIVE: Negative Breast Cancer or Testicular Cancer MUSCULOSKELETAL: Negative Muscular Dystrophy, Myasthenia Gravis, Marfan's Syndrome, Arthritis, Rheumatoid Arthritis, Osteoporosis, Degenerative Disk Disease, Gout, Scoliosis, Fibromyalgia, Fractures, Degenerative Joint Disease, Osteomyelitis or Poliovirus ENT: Negative Cataracts, Glaucoma, Blind, Retinal Detachment, Macular Degeneration, Ear Infection, Deafness or Eye Prosthesis ENDOCRINE: Negative Endocrine Disorders, Diabetes Mellitus Type 1, Diabetes Mellitus Type 2, Hypoglycemia, [place]'s Syndrome, [place]'s Disease, Hyperthyroidism, Hypothyroidism, Parathyroid Disease, Pituitary Disease, Systemic Lupus Erythematosus, Syndrome of Inappropriate Antidiuretic Hormone (SIADH), Adrenal Disease or Graves' Disease HEMATOLOGIC: Negative Blood Disorders, Anemia, Leukemia, Hemophilia, Thalassemia, Sickle Cell Disease or Clotting Problems PSYCHO/SOCIAL: Positive Anxiety; Negative Psychiatric Problems, Schizophrenia, Recreational Drug Use, Bipolar Disorder, Depression, Behavior Problems, Self-Mutilation, Attention Deficit Disorder, Attention Deficit Hyperactivity Disorder, Depression, Post Traumatic Stress Disorder or Eating Disorder OTHER HISTORY: Negative Autism, Falls, Blood Transfusions, Anesthesia Reactions, MRSA, Cancer, Breast Cancer, Colorectal Cancer, Lung Cancer, Prostate Cancer or Testicular Cancer Family History FAMILY HISTORY: Negative Family Psychiatric Problems, Family Respiratory Disorders, Family Cardiac Disorders, Family Gastrointestinal Problems, Family Cancer, Family Surgery or Family Anesthesia Reaction Surgical History SURGICAL: Negative Cardiac Surgery, Open Heart Surgery, Coronary Artery Bypass Graft, Valve Replacement, Vascular Surgery, Coronary Stent, Cardiac Catheterization, Pacemaker, Angiogram, Auto Implanted Cardiovert Defib, Carotid Endarterectomy, Endocrine Surgery, Thyroidectomy or Vasectomy Social History SMOKING STATUS: Smoking status: Never smoker ALCOHOL: Alcohol Intake: Current ALCOHOL FREQUENCY: Alcohol Intake Frequency: A Few Times a Week HOUSING: Housing: House LIVES WITH: Lives With: Family HPI HPI Narrative 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 Pt had been seen last week and was doing well but he presented to the ER two days later due to purulent drainage. Pt states the drainage was coming from his anus, not the external wound and was purulent in nature. He states the drainage has decreased since then and has no pain or fever, is having regular BMs and overall feeling well without any constitutional symptoms ROS Review of Systems Systems Reviewed: All systems reviewed, normal except as documented Objective/Exam General General Appearance: alert, cooperative and well groomed Resp Respiratory exam: Absent respiratory distress Rectal Rectal exam: Present other (right perianal abscess cavity healing with beefy red granulation tissue at base, no erythema, no drainage) Assessment & Plan Diagnosis / Problem List (1) Abscess, perianal: Status: Acute Assessment & Plan: 49M who presented with a perirectal horseshoe abscess s/p I&D 10/14 here, reportedly having anal drainage but no signs or symptoms of a perianal fistula. I encouraged pt to continue his healthy bowel habits and will follow up in 6 weeks Office Procedures GNS Level of Care Nursing/Assessment Patient Status: Established Patient Nursing Assessment/Reassesment: Medication Reconciliation, Update PMH in EMR and Vital Signs Coordination of Care: Complex Care and Chronic Disease 1-5, Consent,records obtained, informed consent, Education Simp Pt/Fam, Results/Orders obtained and Staff clarify orders Established Patient Charge Established Patient Point Assignment: 90 Established Patient Point Charge: EP Level 3 (80-115) Patient Portal Questionaires Social History Living Situation History Housing: House Tobacco History Smoking Status: Never smoker Alcohol History Alcohol Intake: Current Alcohol Intake Frequency: A Few Times a Week Domestic Abuse History Do You Feel Safe at Home: Yes Review of Systems Report any current symptoms Only answer those that you have currently: Past Medical History Past Medical History Have you ever been diagnosed with any of the following: Neurological Problems Seizures: No Cardiology Problems Myocardial Infarction: No Cardiac Arrhythmia: No Atrial Fibrillation: No Angina: No Heart Murmur: No Coronary Artery Disease: No Atherosclerotic Heart Disease: No Peripheral Vascular Disease: No Hypercholesterolemia: No Aneurysm: No Congestive Heart Failure: No Congenital Heart Disease: No Valvular Heart Disease: No Rheumatic Fever: No Cardiomyopathy: No Edema: No Pericarditis: No Cellulitis: No Deep Vein Thrombosis: No Hypertension: No Hypotension: No Varicose Veins: No Respiratory Problems Chronic Obstructive Pulmonary Disease (COPD): No Asthma: No Bronchitis: No Emphysema: No Pneumonia: No Pulmonary Fibrosis: No Tuberculosis: No Pulmonary Embolism: No Pulmonary Edema: No Sleep Apnea: No Stomache/Intestinal Problems Cirrhosis: No Pancreatitis: No Celiac Disease: No Gall Bladder Disease: No Gastrointestinal Bleed: No Esophageal Varices: No Farooq's Esophagus: No Colitis: No Ulcerative Colitis: No Diverticulitis: No Diverticulosis: No Ulcer: No Colorectal Cancer: No Irritable Bowel: No Crohn's Disease: No Obstructive Bowel: No Hiatal Hernia: No Hemorrhoids: Yes Gastroesophageal Reflux Disease: No Obesity: No Genital/Urinary Problems Renal Disease: No Kidney Stones: No Polycystic Kidney Disease: No Neurogenic Bladder: No Inguinal Hernia: No Dialysis: No Prostate Cancer: No Benign Prostatic Hyperplasia: No Reproductive Problems Breast Cancer: No Testicular Cancer: No Musculoskeletal Problems Muscular Dystrophy: No Myasthenia Gravis: No Marfan's Syndrome: No Arthritis: No Rheumatoid Arthritis: No Osteoporosis: No Degenerative Disk Disease: No Gout: No Scoliosis: No Fibromyalgia: No Fractures: No Degenerative Joint Disease: No Osteomyelitis: No Poliovirus: No Head,Eye,Nose,Throat Problems Cataracts: No Glaucoma: No Blind: No Retinal Detachment: No Macular Degeneration: No Chronic Ear Infections: No Deafness: No Eye Prosthesis: No Endocrine Problems Diabetes Mellitus Type 1: No Diabetes Mellitus Type 2: No Hypoglycemia: No [place]'s Syndrome: No Deny's Disease: No Hyperthyroidism: No Hypothyroidism: No Parathyroid Disease: No Pituitary Disease: No Systemic Lupus Erythematosus: No Syndrome of Inappropriate Antidiuretic Hormone: No Adrenal Disease: No Graves' Disease: No Blood Problems Anemia: No Leukemia: No Hemophilia: No Thalassemia: No Sickle Cell Disease: No Clotting Problems: No Psychologic Problems Schizophrenia: No Recreational Drug Use: No Bipolar Disorder: No Depression: No Anxiety: Yes Behavior Problems: No Self-Mutilation: No Attention Deficit Disorder: No Attention Deficit Hyperactivity Disorder: No Depression: No Post Traumatic Stress Disorder: No Eating Disorder: No Other Problems Autism: No Falls: No Blood Transfusions: No Anesthesia Reactions: No MRSA: No Cancer: No Lung Cancer: No Surgical History Carotid Endarterectomy: No Coronary Artery Bypass Graft: No Valve Replacement: No Pacemaker: No Thyroidectomy: No
[2024-11-10 13:45] VITALS: BP 100/44; PULSE 68; RESP 18; TEMP 36.4; O2SAT 94; BMI 28.7
== END 2024-11-10 14:46 | disposition home or self-care (01) ==
LOC: HODSRG 13:25
PROVIDERS: PCP Family Medicine; Referring Provider Family Medicine; Supervising Provider Surgery; Visit Provider Surgery
DX: Z48.817 Encounter for surgical aftercare following surgery on the skin and subcutaneous tissue (principal)
CPT/HCPCS: 99213; G0463

== ENCOUNTER 2024-12-05 13:18 | Outpatient (AMB) | payer MEDICAID, SELFPAY ==
[2024-12-05 13:25] VITALS: BP 150/75; PULSE 76; RESP 18; TEMP 36.3; O2SAT 94; BMI 29.5
--- NOTE | 2024-12-05 13:25 | PD.GSCLVISIT ---
Vital Signs - [facility] 12/05/24 13:25 Height 1.65 m Height Method Measured Weight 80.286 kg Weight Measurement Method Standing Scale BMI 29.5 BP 150/75 H Blood Pressure Source Automatic Cuff Blood Pressure Location Left Upper Arm Position Sitting Respiration 18 Pulse 76 Pulse Source Monitor Temp 97.4 F Temp Source Temporal Artery Scan Pulse Oximetry (%) 94 L Oxygen Delivery Method Room Air Med/Allergies Allergies & Medications Allergies No Known Allergies Allergy (Verified 12/05/24 13:26) Medication Reconciliation tramadol 50 mg tablet 50 mg PO Q6H PRN pain #30 tabs 10/20/24 [Rx Confirmed 12/05/24] hydrocortisone acetate 25 mg rectal suppository (Anusol-HC) 25 mg [place] BID #24 ea 11/02/24 [Rx Confirmed 12/05/24] ibuprofen 600 mg tablet 600 mg PO Q6H #30 tabs 11/02/24 [Rx Confirmed 12/05/24] MA Intake Visit Data Collection New Patient or Established: Established Patient (seen at [facility] within 3 years) Seen by Clinical Staff ONLY (RN/MA): No Reason for Visit:: F/U FISTULA Pain Present Currently: No Pain 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 PCP or OBGYN visit in last 3 months: Yes Hx Now: No Do You Feel Safe at Home: Yes Authorities Contacted: N/A Smoking Status Smoking Status: Never smoker Immunization / Flu Flu Vaccine in the Last 12 Months: No Flu Vaccine Exclusion Criteria: Refused by Patient Past Medical History Past Medical History NEUROLOGIC: Negative Neurological Disorders or Seizures CARDIAC: Negative Cardiac Disorders, Myocardial Infarction, Cardiac Arrhythmia, Atrial Fibrillation, Angina, Heart Murmur, Coronary Artery Disease, Atherosclerotic Heart Disease, Peripheral Vascular Disease, Hypercholesterolemia, Aneurysm, Congestive Heart Failure, Congenital Heart Disease, Valvular Heart Disease, Rheumatic Fever, Cardiomyopathy, Edema, Pericarditis, Cellulitis, Deep Vein Thrombosis, Hypertension, Hypotension or Varicose Veins RESPIRATORY: Negative Chronic Obstructive Pulmonary Disease (COPD), Asthma, Bronchitis, Emphysema, Pneumonia, Pulmonary Fibrosis, Cystic Fibrosis, Tuberculosis, Pulmonary Embolism, Pulmonary Edema or Sleep Apnea GASTROINTESTINAL: Positive Hemorrhoids; Negative Gastrointestinal Disorders, Cirrhosis, Pancreatitis, Celiac Disease, Gall Bladder Disease, Gastrointestinal Bleed, Esophageal Varices, Farooq's Esophagus, Colitis, Ulcerative Colitis, Diverticulitis, Diverticulosis, Ulcer, Colorectal Cancer, Irritable Bowel, Crohn's Disease, Obstructive Bowel, Hiatal Hernia, Gastroesophageal Reflux Disease or Obesity GENITOURINARY: Negative Genitourinary Disorders, Renal Disease, Kidney Stones, Polycystic Kidney Disease, Neurogenic Bladder, Inguinal Hernia, Dialysis, Prostate Cancer or Benign Prostatic Hyperplasia REPRODUCTIVE: Negative Breast Cancer or Testicular Cancer MUSCULOSKELETAL: Negative Muscular Dystrophy, Myasthenia Gravis, Marfan's Syndrome, Arthritis, Rheumatoid Arthritis, Osteoporosis, Degenerative Disk Disease, Gout, Scoliosis, Fibromyalgia, Fractures, Degenerative Joint Disease, Osteomyelitis or Poliovirus ENT: Negative Cataracts, Glaucoma, Blind, Retinal Detachment, Macular Degeneration, Ear Infection, Deafness or Eye Prosthesis ENDOCRINE: Negative Endocrine Disorders, Diabetes Mellitus Type 1, Diabetes Mellitus Type 2, Hypoglycemia, [place]'s Syndrome, Deny's Disease, Hyperthyroidism, Hypothyroidism, Parathyroid Disease, Pituitary Disease, Systemic Lupus Erythematosus, Syndrome of Inappropriate Antidiuretic Hormone (SIADH), Adrenal Disease or Graves' Disease HEMATOLOGIC: Negative Blood Disorders, Anemia, Leukemia, Hemophilia, Thalassemia, Sickle Cell Disease or Clotting Problems PSYCHO/SOCIAL: Positive Anxiety; Negative Psychiatric Problems, Schizophrenia, Recreational Drug Use, Bipolar Disorder, Depression, Behavior Problems, Self-Mutilation, Attention Deficit Disorder, Attention Deficit Hyperactivity Disorder, Depression, Post Traumatic Stress Disorder or Eating Disorder OTHER HISTORY: Negative Autism, Falls, Blood Transfusions, Anesthesia Reactions, MRSA, Cancer, Breast Cancer, Colorectal Cancer, Lung Cancer, Prostate Cancer or Testicular Cancer Family History FAMILY HISTORY: Negative Family Psychiatric Problems, Family Respiratory Disorders, Family Cardiac Disorders, Family Gastrointestinal Problems, Family Cancer, Family Surgery or Family Anesthesia Reaction Surgical History SURGICAL: Negative Cardiac Surgery, Open Heart Surgery, Coronary Artery Bypass Graft, Valve Replacement, Vascular Surgery, Coronary Stent, Cardiac Catheterization, Pacemaker, Angiogram, Auto Implanted Cardiovert Defib, Carotid Endarterectomy, Endocrine Surgery, Thyroidectomy or Vasectomy Social History SMOKING STATUS: Smoking status: Never smoker ALCOHOL: Alcohol Intake: Current ALCOHOL FREQUENCY: Alcohol Intake Frequency: A Few Times a Week HOUSING: Housing: House LIVES WITH: Lives With: Family HPI HPI Narrative HISTORY OF PRESENT ILLNESS I, Marleny Erazo, have obtained verbal consent from the patient, to be recorded during this encounter which may include, but not limited to, medical history, examination, treatment plans, and relevant health information.? Patient was informed that recording will be read and reviewed by myself before inclusion in the medical chart. The patient presents for a follow-up of a perianal abscess. 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 He reports no drainage from the abscess site. He experiences occasional throbbing pain, the cause of which he is uncertain whether it is due to the surgery or his hemorrhoids. He also mentions itching but has not noticed any bleeding. His bowel movements are generally easy, although he occasionally experiences discomfort during defecation. He maintains a high-fiber diet and does not use any specific treatments for his hemorrhoids. A colonoscopy performed approximately a year ago revealed only the presence of hemorrhoids. He recalls being informed that another colonoscopy would be necessary in 10 years ROS Review of Systems Systems Reviewed: All systems reviewed, normal except as documented Objective/Exam General General Appearance: alert, cooperative and well groomed Resp Respiratory exam: Absent respiratory distress Assessment & Plan Diagnosis / Problem List (1) Abscess, perianal: Status: Acute Assessment & Plan: No drainage from the surgical site is reported. Bowel movements are generally manageable with fiber intake, though occasional pressure is felt. Continued high-fiber diet is advised to prevent constipation. [id number] medications such as Preparation H and witch jovany wipes are recommended for relief from itching. Sitz baths with warm water for 15 minutes, up to three times a day, are suggested to alleviate itching and pain. A handout on hemorrhoids is provided. Given the current condition, another surgery is not deemed necessary at this time. If drainage from the surgical site occurs, it could indicate the need for another surgery. Follow-up appointment is scheduled for 3 months from now, or contact can be made sooner if needed. Office Procedures GNS Level of Care Nursing/Assessment Patient Status: Established Patient Nursing Assessment/Reassesment: Medication Reconciliation, Update PMH in EMR and Vital Signs Coordination of Care: Complex Care and Chronic Disease 1-5, Consent,records obtained, informed consent, Education Simp Pt/Fam, Results/Orders obtained and Staff clarify orders Special Needs: Language special needs Established Patient Charge Established Patient Point Assignment: 90 Established Patient Point Charge: EP Level 3 (80-115) Patient Portal Questionaires Social History Living Situation History Housing: House Tobacco History Smoking Status: Never smoker Alcohol History Alcohol Intake: Current Alcohol Intake Frequency: A Few Times a Week Domestic Abuse History Do You Feel Safe at Home: Yes Review of Systems Report any current symptoms Only answer those that you have currently: Past Medical History Past Medical History Have you ever been diagnosed with any of the following: Neurological Problems Seizures: No Cardiology Problems Myocardial Infarction: No Cardiac Arrhythmia: No Atrial Fibrillation: No Angina: No Heart Murmur: No Coronary Artery Disease: No Atherosclerotic Heart Disease: No Peripheral Vascular Disease: No Hypercholesterolemia: No Aneurysm: No Congestive Heart Failure: No Congenital Heart Disease: No Valvular Heart Disease: No Rheumatic Fever: No Cardiomyopathy: No Edema: No Pericarditis: No Cellulitis: No Deep Vein Thrombosis: No Hypertension: No Hypotension: No Varicose Veins: No Respiratory Problems Chronic Obstructive Pulmonary Disease (COPD): No Asthma: No Bronchitis: No Emphysema: No Pneumonia: No Pulmonary Fibrosis: No Tuberculosis: No Pulmonary Embolism: No Pulmonary Edema: No Sleep Apnea: No Stomache/Intestinal Problems Cirrhosis: No Pancreatitis: No Celiac Disease: No Gall Bladder Disease: No Gastrointestinal Bleed: No Esophageal Varices: No Farooq's Esophagus: No Colitis: No Ulcerative Colitis: No Diverticulitis: No Diverticulosis: No Ulcer: No Colorectal Cancer: No Irritable Bowel: No Crohn's Disease: No Obstructive Bowel: No Hiatal Hernia: No Hemorrhoids: Yes Gastroesophageal Reflux Disease: No Obesity: No Genital/Urinary Problems Renal Disease: No Kidney Stones: No Polycystic Kidney Disease: No Neurogenic Bladder: No Inguinal Hernia: No Dialysis: No Prostate Cancer: No Benign Prostatic Hyperplasia: No Reproductive Problems Breast Cancer: No Testicular Cancer: No Musculoskeletal Problems Muscular Dystrophy: No Myasthenia Gravis: No Marfan's Syndrome: No Arthritis: No Rheumatoid Arthritis: No Osteoporosis: No Degenerative Disk Disease: No Gout: No Scoliosis: No Fibromyalgia: No Fractures: No Degenerative Joint Disease: No Osteomyelitis: No Poliovirus: No Head,Eye,Nose,Throat Problems Cataracts: No Glaucoma: No Blind: No Retinal Detachment: No Macular Degeneration: No Chronic Ear Infections: No Deafness: No Eye Prosthesis: No Endocrine Problems Diabetes Mellitus Type 1: No Diabetes Mellitus Type 2: No Hypoglycemia: No [place]'s Syndrome: No [place]'s Disease: No Hyperthyroidism: No Hypothyroidism: No Parathyroid Disease: No Pituitary Disease: No Systemic Lupus Erythematosus: No Syndrome of Inappropriate Antidiuretic Hormone: No Adrenal Disease: No Graves' Disease: No Blood Problems Anemia: No Leukemia: No Hemophilia: No Thalassemia: No Sickle Cell Disease: No Clotting Problems: No Psychologic Problems Schizophrenia: No Recreational Drug Use: No Bipolar Disorder: No Depression: No Anxiety: Yes Behavior Problems: No Self-Mutilation: No Attention Deficit Disorder: No Attention Deficit Hyperactivity Disorder: No Depression: No Post Traumatic Stress Disorder: No Eating Disorder: No Other Problems Autism: No Falls: No Blood Transfusions: No Anesthesia Reactions: No MRSA: No Cancer: No Lung Cancer: No Surgical History Carotid Endarterectomy: No Coronary Artery Bypass Graft: No Valve Replacement: No Pacemaker: No Thyroidectomy: No
== END 2024-12-05 13:57 | disposition home or self-care (01) ==
LOC: HODSRG 13:18
PROVIDERS: PCP Family Medicine; Referring Provider Family Medicine; Supervising Provider Surgery; Visit Provider Surgery
DX: K61.0 Anal abscess (principal)
CPT/HCPCS: 99213; G0463

== ENCOUNTER 2025-02-13 12:53 | Outpatient (AMB) | payer MEDICAID, SELFPAY ==
[2025-02-13 13:13] VITALS: BP 147/87; PULSE 75; RESP 20; TEMP 37; O2SAT 95; BMI 30.9
--- NOTE | 2025-02-13 13:13 | PD.GSCLVISIT ---
Vital Signs - [facility] 02/13/25 13:13 Height 1.65 m Height Method Measured Weight 84.397 kg Weight Measurement Method Standing Scale BMI 30.9 BP 147/87 H Blood Pressure Source Automatic Cuff Blood Pressure Location Left Upper Arm Position Sitting Respiration 20 Pulse 75 Pulse Source Monitor Temp 98.6 F Temp Source Temporal Artery Scan Pulse Oximetry (%) 95 Oxygen Delivery Method Room Air Med/Allergies Allergies & Medications Allergies No Known Allergies Allergy (Verified 02/13/25 13:14) Medication Reconciliation tramadol 50 mg tablet 50 mg PO Q6H PRN pain #30 tabs 10/20/24 [Rx Confirmed 02/13/25] hydrocortisone acetate 25 mg rectal suppository (Anusol-HC) 25 mg IN BID #24 ea 11/02/24 [Rx Confirmed 02/13/25] ibuprofen 600 mg tablet 600 mg PO Q6H #30 tabs 11/02/24 [Rx Confirmed 02/13/25] mupirocin 2 % topical ointment (Centany) 1 applic topical BID #22 grams 02/13/25 [Rx] MA Intake Visit Data Collection New Patient or Established: Established Patient (seen at [facility] within 3 years) Seen by Clinical Staff ONLY (RN/MA): No Reason for Visit:: F/U FISTULA Pain Present Currently: Yes Pain Location: Rectum Pain scale:: 5 Pain Scale Used: [employer] Required: Yes PCP or OBGYN visit in last 3 months: Yes Hx Now: No Do You Feel Safe at Home: Yes Authorities Contacted: N/A Smoking Status Smoking Status: Never smoker Immunization / Flu Flu Vaccine in the Last 12 Months: Yes Flu Vaccine Exclusion Criteria: Already Received Past Medical History Past Medical History NEUROLOGIC: Negative Neurological Disorders or Seizures CARDIAC: Negative Cardiac Disorders, Myocardial Infarction, Cardiac Arrhythmia, Atrial Fibrillation, Angina, Heart Murmur, Coronary Artery Disease, Atherosclerotic Heart Disease, Peripheral Vascular Disease, Hypercholesterolemia, Aneurysm, Congestive Heart Failure, Congenital Heart Disease, Valvular Heart Disease, Rheumatic Fever, Cardiomyopathy, Edema, Pericarditis, Cellulitis, Deep Vein Thrombosis, Hypertension, Hypotension or Varicose Veins RESPIRATORY: Negative Chronic Obstructive Pulmonary Disease (COPD), Asthma, Bronchitis, Emphysema, Pneumonia, Pulmonary Fibrosis, Cystic Fibrosis, Tuberculosis, Pulmonary Embolism, Pulmonary Edema or Sleep Apnea GASTROINTESTINAL: Positive Hemorrhoids; Negative Gastrointestinal Disorders, Cirrhosis, Pancreatitis, Celiac Disease, Gall Bladder Disease, Gastrointestinal Bleed, Esophageal Varices, Farooq's Esophagus, Colitis, Ulcerative Colitis, Diverticulitis, Diverticulosis, Ulcer, Colorectal Cancer, Irritable Bowel, Crohn's Disease, Obstructive Bowel, Hiatal Hernia, Gastroesophageal Reflux Disease or Obesity GENITOURINARY: Negative Genitourinary Disorders, Renal Disease, Kidney Stones, Polycystic Kidney Disease, Neurogenic Bladder, Inguinal Hernia, Dialysis, Prostate Cancer or Benign Prostatic Hyperplasia REPRODUCTIVE: Negative Breast Cancer or Testicular Cancer MUSCULOSKELETAL: Negative Muscular Dystrophy, Myasthenia Gravis, Marfan's Syndrome, Arthritis, Rheumatoid Arthritis, Osteoporosis, Degenerative Disk Disease, Gout, Scoliosis, Fibromyalgia, Fractures, Degenerative Joint Disease, Osteomyelitis or Poliovirus ENT: Negative Cataracts, Glaucoma, Blind, Retinal Detachment, Macular Degeneration, Ear Infection, Deafness or Eye Prosthesis ENDOCRINE: Negative Endocrine Disorders, Diabetes Mellitus Type 1, Diabetes Mellitus Type 2, Hypoglycemia, Ashley's Syndrome, Deny's Disease, Hyperthyroidism, Hypothyroidism, Parathyroid Disease, Pituitary Disease, Systemic Lupus Erythematosus, Syndrome of Inappropriate Antidiuretic Hormone (SIADH), Adrenal Disease or Graves' Disease HEMATOLOGIC: Negative Blood Disorders, Anemia, Leukemia, Hemophilia, Thalassemia, Sickle Cell Disease or Clotting Problems PSYCHO/SOCIAL: Positive Anxiety; Negative Psychiatric Problems, Schizophrenia, Recreational Drug Use, Bipolar Disorder, Depression, Behavior Problems, Self-Mutilation, Attention Deficit Disorder, Attention Deficit Hyperactivity Disorder, Depression, Post Traumatic Stress Disorder or Eating Disorder OTHER HISTORY: Negative Autism, Falls, Blood Transfusions, Anesthesia Reactions, MRSA, Cancer, Breast Cancer, Colorectal Cancer, Lung Cancer, Prostate Cancer or Testicular Cancer Family History FAMILY HISTORY: Negative Family Psychiatric Problems, Family Respiratory Disorders, Family Cardiac Disorders, Family Gastrointestinal Problems, Family Cancer, Family Surgery or Family Anesthesia Reaction Surgical History SURGICAL: Negative Cardiac Surgery, Open Heart Surgery, Coronary Artery Bypass Graft, Valve Replacement, Vascular Surgery, Coronary Stent, Cardiac Catheterization, Pacemaker, Angiogram, Auto Implanted Cardiovert Defib, Carotid Endarterectomy, Endocrine Surgery, Thyroidectomy or Vasectomy Social History SMOKING STATUS: Smoking status: Never smoker ALCOHOL: Alcohol Intake: Current ALCOHOL FREQUENCY: Alcohol Intake Frequency: A Few Times a Week HOUSING: Housing: House LIVES WITH: Lives With: Family HPI HPI Narrative 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 Pt reports he is doing well overall but recently noted a bump where he had the I&D done, which is somewhat painful especially when he is sitting. His BMs are soft and regular without any straining, and he denies any drainage or bleeding from the area. ROS Review of Systems Systems Reviewed: All systems reviewed, normal except as documented Objective/Exam General General Appearance: alert, cooperative and well groomed Resp Respiratory exam: Absent respiratory distress Rectal Rectal exam: Present other (at the right perianal region approx 1cm anterior to the verge there is a well-healed scar, no fluctuance, minimal tenderness, no drainage or bleeding) Assessment & Plan Diagnosis / Problem List (1) Abscess, perianal: Status: Acute Assessment & Plan: 49M who presented with a perianal horseshoe abscess s/p I&D 10/14/2024 here for planned follow up. He is having pain at the incision site but there is no sign of recurrent abscess nor fistula, not requiring any surgical intervention Plan: Mupirocin prn F/u next month Office Procedures GNS Level of Care Nursing/Assessment Patient Status: Established Patient Nursing Assessment/Reassesment: Medication Reconciliation, Update PMH in EMR and Vital Signs Coordination of Care: Complex Care and Chronic Disease 1-5, Education Complex Pt/Fam, Consent,records obtained, informed consent, Results/Orders obtained and Staff clarify orders Special Needs: Language special needs Established Patient Charge Established Patient Point Assignment: 95 Established Patient Point Charge: EP Level 3 (80-115) Patient Portal Questionaires Social History Living Situation History Housing: House Tobacco History Smoking Status: Never smoker Alcohol History Alcohol Intake: Current Alcohol Intake Frequency: A Few Times a Week Domestic Abuse History Do You Feel Safe at Home: Yes Review of Systems Report any current symptoms Only answer those that you have currently: Past Medical History Past Medical History Have you ever been diagnosed with any of the following: Neurological Problems Seizures: No Cardiology Problems Myocardial Infarction: No Cardiac Arrhythmia: No Atrial Fibrillation: No Angina: No Heart Murmur: No Coronary Artery Disease: No Atherosclerotic Heart Disease: No Peripheral Vascular Disease: No Hypercholesterolemia: No Aneurysm: No Congestive Heart Failure: No Congenital Heart Disease: No Valvular Heart Disease: No Rheumatic Fever: No Cardiomyopathy: No Edema: No Pericarditis: No Cellulitis: No Deep Vein Thrombosis: No Hypertension: No Hypotension: No Varicose Veins: No Respiratory Problems Chronic Obstructive Pulmonary Disease (COPD): No Asthma: No Bronchitis: No Emphysema: No Pneumonia: No Pulmonary Fibrosis: No Tuberculosis: No Pulmonary Embolism: No Pulmonary Edema: No Sleep Apnea: No Stomache/Intestinal Problems Cirrhosis: No Pancreatitis: No Celiac Disease: No Gall Bladder Disease: No Gastrointestinal Bleed: No Esophageal Varices: No Farooq's Esophagus: No Colitis: No Ulcerative Colitis: No Diverticulitis: No Diverticulosis: No Ulcer: No Colorectal Cancer: No Irritable Bowel: No Crohn's Disease: No Obstructive Bowel: No Hiatal Hernia: No Hemorrhoids: Yes Gastroesophageal Reflux Disease: No Obesity: No Genital/Urinary Problems Renal Disease: No Kidney Stones: No Polycystic Kidney Disease: No Neurogenic Bladder: No Inguinal Hernia: No Dialysis: No Prostate Cancer: No Benign Prostatic Hyperplasia: No Reproductive Problems Breast Cancer: No Testicular Cancer: No Musculoskeletal Problems Muscular Dystrophy: No Myasthenia Gravis: No Marfan's Syndrome: No Arthritis: No Rheumatoid Arthritis: No Osteoporosis: No Degenerative Disk Disease: No Gout: No Scoliosis: No Fibromyalgia: No Fractures: No Degenerative Joint Disease: No Osteomyelitis: No Poliovirus: No Head,Eye,Nose,Throat Problems Cataracts: No Glaucoma: No Blind: No Retinal Detachment: No Macular Degeneration: No Chronic Ear Infections: No Deafness: No Eye Prosthesis: No Endocrine Problems Diabetes Mellitus Type 1: No Diabetes Mellitus Type 2: No Hypoglycemia: No Waelder's Syndrome: No [place]'s Disease: No Hyperthyroidism: No Hypothyroidism: No Parathyroid Disease: No Pituitary Disease: No Systemic Lupus Erythematosus: No Syndrome of Inappropriate Antidiuretic Hormone: No Adrenal Disease: No Graves' Disease: No Blood Problems Anemia: No Leukemia: No Hemophilia: No Thalassemia: No Sickle Cell Disease: No Clotting Problems: No Psychologic Problems Schizophrenia: No Recreational Drug Use: No Bipolar Disorder: No Depression: No Anxiety: Yes Behavior Problems: No Self-Mutilation: No Attention Deficit Disorder: No Attention Deficit Hyperactivity Disorder: No Depression: No Post Traumatic Stress Disorder: No Eating Disorder: No Other Problems Autism: No Falls: No Blood Transfusions: No Anesthesia Reactions: No MRSA: No Cancer: No Lung Cancer: No Surgical History Carotid Endarterectomy: No Coronary Artery Bypass Graft: No Valve Replacement: No Pacemaker: No Thyroidectomy: No
== END 2025-02-13 13:31 | disposition home or self-care (01) ==
LOC: HODSRG 12:53
PROVIDERS: PCP Family Medicine; Referring Provider Family Medicine; Supervising Provider Surgery; Visit Provider Surgery
DX: Z48.817 Encounter for surgical aftercare following surgery on the skin and subcutaneous tissue (principal)
CPT/HCPCS: 99213; G0463

== ENCOUNTER 2025-02-19 17:17 | Emergency (ER) | payer MEDICAID, SELFPAY ==
[2025-02-19 17:19] VITALS: BMI 31.8
[2025-02-19 17:55] VITALS: BP 152/88; PULSE 76; RESP 18; TEMP 37.6; O2SAT 95
--- NOTE | 2025-02-19 18:08 | PD.EDRME ---
Rapid Medical Screening Exam RME Arrival date/time: 02/19/25 17:17 Chief Complaint: Wound/Laceration Time Seen by Provider: 02/19/25 18:00 Vital signs: Vital Signs Temperature 99.6 F 02/19/25 17:55 Pulse Rate 76 02/19/25 17:55 Respiratory Rate 18 02/19/25 17:55 Blood Pressure 152/88 H 02/19/25 17:55 Pulse Oximetry (%) 95 02/19/25 17:55 Oxygen Delivery Method Room Air 02/19/25 17:55 RME Narrative: Single episode of bright red blood per rectum today. History of horseshoe perianal abscess s/p I&D in October. Saw Dr. Erazo in office 02/13. Exam: Well-appearing, no acute distress Clinical Impression: Rectal bleeding
[2025-02-19 18:22] LABS: Basophils # (Auto) 0.1 Thou/mm3 (0.0-0.2); Basophils % (Auto) 1 % (0-2.5); Eosinophils # (Auto) 0.0 Thou/mm3 (0.0-0.5); Eosinophils % (Auto) 1 % (0-10); Hematocrit 47.2 % (41.0-53.0); Hemoglobin 16.1 g/dL (13.5-16.0); Immature Granulocytes Auto 0.02 Thou/mm3 (0.00-0.00); Lymphocytes # (Auto) 2.0 Thou/mm3 (1.0-4.8); Lymphocytes % (Auto) 33 % (10-50); Mean Corpuscular HGB Conc 34.1 g/dl (31.0-37.0); Mean Corpuscular Hemoglobin 31.4 pg (25.0-35.0); Mean Corpuscular Volume 92 fL (80-100); Monocytes # (Auto) 0.4 Thou/mm3 (0.0-0.8); Monocytes % (Auto) 7 % (0-12); Neutrophils # (Auto) 3.4 Thou/mm3 (1.8-7.7); Neutrophils % (Auto) 57 % (37-80); Nucleated Red Blood Cell # 0.00 Thou/mm3 (0.00-0.00); Nucleated Red Blood Cell % 0 /100 WBC (0); Platelet Count 164 Thou/mm3 (140-440); RDW Standard Deviation 41.7 fL (35.1-43.9); Red Blood Count 5.13 Miln/mm3 (4.50-5.90); White Blood Count 5.9 Thou/mm3 (3.8-10.6)
--- NOTE | 2025-02-19 18:34 | PD.EDRME ---
Rapid Medical Screening Exam RME Arrival date/time: 02/19/25 17:17 Single episode of bright red blood per rectum today. History of horseshoe perianal abscess s/p I&D in October. Saw Dr. Erazo in office 02/13. Chief Complaint: Wound/Laceration Time Seen by Provider: 02/19/25 18:00 Vital signs: Vital Signs Temperature 99.6 F 02/19/25 17:55 Pulse Rate 76 02/19/25 17:55 Respiratory Rate 18 02/19/25 17:55 Blood Pressure 152/88 H 02/19/25 17:55 Pulse Oximetry (%) 95 02/19/25 17:55 Oxygen Delivery Method Room Air 02/19/25 17:55 RME Narrative: Single episode of bright red blood per rectum today. History of horseshoe perianal abscess s/p I&D in October. Saw Dr. Erazo in office 02/13. Exam: Well-appearing, no acute distress Clinical Impression: Rectal bleeding
[2025-02-19 18:45] LABS: Alanine Aminotransferase 49 U/L (10-49); Albumin, Serum 5.0 gm/dL (3.5-5.0); Albumin/Globulin Ratio 1.5 (1.2-2.2); Alkaline Phosphatase 103 U/L (46-116); Anion Gap 10 (7-16); Aspartate Amino Transferase 27 U/L (0-34); BUN/Creatinine Ratio 15 Ratio (12-20); Bilirubin,Total 0.4 mg/dL (0.3-1.2); Blood Urea Nitrogen 15 mg/dL (9-23); Calcium 9.5 mg/dL (8.3-10.6); Calcium (Corrected) 9.5 mg/dL (8.5-10.1); Carbon Dioxide 27.4 mMol/L (20.0-31.0); Chloride 103 mMol/L (98-107); Creatinine (Component) 1.0 mg/dL (0.6-1.3); Estimated Creatinine Clearance 83.5 mL/min (>60); Globulin 3.4 gm/dL (2.3-3.5); Glucose 115 mg/dL (74-106); Osmolality,Calculated 281 (275-295); Potassium 4.3 mMol/L (3.4-5.1); Sodium 140 mMol/L (136-145); Total Protein 8.4 gm/dL (5.7-8.2); eGFR > 60 See Note
--- NOTE | 2025-02-19 19:30 | EDNOTE_ITS ---
ED General RME/HPI General Chief complaint: Wound/Laceration Stated complaint: WOUND CHECK RT BUTT Time Seen by Provider: 02/19/25 18:00 Arrival date/time: 02/19/25 17:17 CC: Single episode of small amount of rectal bleeding. Patient was seen here on February 13 for rectal abscess that was I&D by Dr. Story. The patient states the area also has remained moist denies fever chills shortness of breath difficulty breathing nausea vomiting diarrhea constipation or significant rectal pain. RME / HPI RME / HPI narrative: Single episode of bright red blood per rectum today. History of horseshoe perianal abscess s/p I&D in October. Saw Dr. Erazo in office 02/13. Exam: Well-appearing, no acute distress Impression: Rectal bleeding Related Data Previous Rx's ?Medication ?Instructions ?Recorded tramadol 50 mg tablet 50 mg PO Q6H PRN pain #30 ta bs 10/20/24 hydrocortisone acetate 25 mg 25 mg LA BID #24 ea 11/02 rectal suppository (Anusol-HC) ibuprofen 600 mg tablet 600 mg PO Q6H #30 tabs 11/02 mupirocin 2 % topical ointment 1 applic topical BID #2 2 grams 02/13/25 (Centany) Allergies Allergy/AdvReac Type Severity Reaction Status Date / Time No Known Allergies Allergy Verified 02/13/25 13:14 Review of Systems Review of Systems Narrative Review of Systems: GEN: No fever, no chills, no weight loss EYES: No discharge, no visual changes, no pain HEENT: No ear pain, no congestion, no sore throat PULM: No shortness of breath, no cough, no congestion CV: No chest pain, no dyspnea on exertion, no palpitations GI: No nausea, no vomiting, no diarrhea, no pain, no constipation : No frequency, no urgency, no dysuria MUSC/SKEL: No joint pain, no back pain SKIN: No rash PSYCH: No hallucinations, no depression HEME/LYMPH: No easy bleeding or bruising tendencies NEURO: No weakness, no headache ED Exam Narrative Physical exam: [General: Not in any acute distress Head normocephalic HEENT: Within acceptable limits Neck is supple nontender Chest equal chest rise nontender to palpation Respiratory: Clear to auscultation no wheezes crackles or rubs Abdomen: Soft nontender no masses positive bowel sounds all 4 quadrants Back: No CVA tenderness no spinous process tenderness from cervical spine thoracic and lumbar spine Skin: Rectal I&D site at 9 o'clock position is well-healed small amount of exudate no active bleeding no surrounding erythema edema no masses appreciated nontender to touch. Otherwise skin is intact no petechiae rash induration ulceration or crepitus Extremities: Moving all extremity against resistance cap refill less than 2 seconds neurosensory intact Neuro: Awake alert oriented x3 Glascow coma 15 no focal deficits] Course Quality Measures none Orders Category Date Time Status CBC Stat Lab 02/19/25 18:17 Completed CMP [Comprehensive Metabolic Panel] Stat Lab 02/19/25 18:17 Completed Vital Signs Vital signs: Vital Signs Temperature 99.6 F 02/19/25 17:55 Pulse Rate 76 02/19/25 17:55 Respiratory Rate 18 02/19/25 17:55 Blood Pressure 152/88 H 02/19/25 17:55 Pulse Oximetry (%) 95 02/19/25 17:55 Oxygen Delivery Method Room Air 02/19/25 17:55 Discharge Plan Plan Patient Disposition: HOME (Self Care) Patient condition on transfer: Stable Prescriptions/Referrals Prescriptions/Med Rec: No Action mupirocin [Centany] 2 % ointment 1 applic topical BID Qty: 22 2RF tramadol 50 mg tablet 50 mg PO Q6H MDD 4 tabs PRN (Reason: pain) Qty: 30 0RF Rx Instructions: Take 1 tablet as needed every 6 hours for severe pain hydrocortisone acetate [Anusol-HC] 25 mg suppository 25 mg LA BID Qty: 24 0RF ibuprofen 600 mg tablet 600 mg PO Q6H Qty: 30 0RF Referrals: Tutu Gibson MD [Primary Care Provider, Family Practice] - In 1 week Problem List Clinical Impression: Rectal bleed Patient/Caregiver Discharge Instructions Education Materials: ED Abscess Incision And ... Additional Instructions: Keep the site clean and dry but not to be overaggressive with wiping follow-up with Dr. Story as planned if there is a worsening of symptoms return the emergency room meetly for further evaluation. Print Language: Georgian Stand Alone Forms: Bertha Award Info., Patient Portal Info Letter PA/DATA OPERATIONS MANAGER Supervising Physician PA/DATA OPERATIONS MANAGER Supervising Physician: Jeramy Gallardo ENP
== END 2025-02-19 19:39 | disposition home or self-care (01) ==
PROVIDERS: Physician Assistant; Emergency Provider Emergency Medicine; PCP Family Medicine
DX: K62.5 Hemorrhage of anus and rectum (principal)
CPT/HCPCS: 36415; 80053; 85025; 99282